=== PATIENT | male | born 1965 | race Caucasian/White ===

== ENCOUNTER 2024-06-04 16:34 | Emergency (ER) | payer OTHER, SELFPAY ==
[2024-06-04] VITALS (72 sets, daily range): BP systolic 157–166; BP diastolic 84–89; PULSE 84–100; RESP 13–26; TEMP 35.8; O2SAT 91–100
--- NOTE | 2024-06-04 17:30 | RT.EKG_ITS ---
APPROVED REPORT Exam: Resting ECG Reason for Exam: Chest pain Patient Location: E HR:92 bpm ECG Measurements Heart Rate 92 AXIS MN [id number] P [id number] QRSd 95 QRS 59 QT 350 T 57 QTc 432 Conclusion Accelerated junctional rhythm...absent P waves, accele'd V-rate motion artifact, sinus, no stemi
--- NOTE | 2024-06-04 17:30 | DI.RAD_ITS ---
Exam(s) XR CHEST 2V PA LATERAL EXAM: XR CHEST 2V PA LATERAL CLINICAL HISTORY: Chest pain TECHNIQUE: 2D digital imaging was performed of the chest. Two images were obtained. PA and lateral views were obtained. COMPARISON: No exams were available for comparison FINDINGS: MEDIASTINUM: Normal. HEART: Normal. PULMONARY VASCULATURE: Normal. LUNGS: There is a 1.7 cm spiculated nodule which appears to lie in the lingula on the lateral view. The lungs are hyperinflated suggesting underlying COPD. There are bibasilar infiltrates present, lef t greater than right. PLEURAL SPACE: No pleural effusion or pneumothorax. BONE:Within normal limits for the patient's age. OTHER FINDINGS:Normal. IMPRESSION: 1. 1.7 cm spiculated nodule which appears to lie in the lingula. Finding is concerning for neoplasm. CT scan of the chest is recommended for further evaluation. 2. Bilateral basilar infiltrates. This may represent atelectasis, scarring or pneumonia. Please cor relate clinically. Unexpected findings DATA REPOSITORY: RADIATION DOSE DELIVERED:
[2024-06-04 18:40] LABS: Abs Immature Grans 0.06 10^3/uL (0.0-0.06); Absolute Basophil Count 0.04 10^3/uL (0.0-0.2); Absolute Eosinophil Count 0.02 10^3/uL (0.0-0.7); Absolute Lymphocyte Count 1.52 10^3/uL (1.2-3.4); Absolute Monocyte Count 0.69 10^3/uL (0.1-0.8); Absolute Neutrophil Count 6.72 10^3/uL (1.2-6.7); Basophils % 0.4 %; Eosinophils % 0.2 %; HCT 47.4 % (40.0-50.0); HGB 15.8 g/dL (13.5-17.5); Immature Grans % 0.7 %; Lymphocytes % 16.8 %; MCH 30.1 pg (27.0-33.0); MCHC 33.3 % (32.0-36.0); MCV 90 fL (80-95); MPV 8.8 fL (8.0-11.0); Monocytes % 7.6 %; Neutrophils % 74.3 %; Platelet Count 267 10^3/uL (130-400); RBC 5.25 10^6/uL (4.36-5.78); RDW 14.8 % (11.8-14.1); RDW-SD 48.8 fL; WBC 9.05 10^3/uL (4.4-10.8)
[2024-06-04] MEDS: Albuterol 2.5 MG/3 ML INH SOLN VIAL UPD (18:41)
[2024-06-04] MEDS: Albuterol HFA 8 GM 60 PUFF INH IH (18:42)
[2024-06-04 19:03] LABS: ALT 21 U/L (16-63); AST 17 U/L (15-37); Alkaline Phosphatase 116 U/L (46-116); BUN 11 mg/dL (7-18); Bilirubin, Total 0.6 mg/dL (0.2-1.0); CREATININE 0.8 mg/dL (0.70-1.30); Calcium 9.2 mg/dL (8.5-10.1); Chloride 104 mmol/L (98-107); Estimated GFR 102.58 (mL/min/1.73m2); Glucose 116 mg/dL (74-106); NT-proBNP 120 pg/mL (<300); Potassium 4.2 mmol/L (3.5-5.1); Sodium 141 mmol/L (136-145); Total Protein 8.1 g/dL (6.4-8.2)
[2024-06-04 19:06] LABS: D-Dimer 322 ng/mlFEU (<500)
[2024-06-04 19:13] LABS: Troponin I < 4 ng/L (<or=76)
[2024-06-04] MEDS: Albuterol/Ipratropium 3 ML UPD VIAL UPD ×2 (19:45→20:09)
--- NOTE | 2024-06-04 20:08 | DI.VRAD_ITS ---
PROCEDURE INFORMATION: Exam: XR Chest Exam date and time: 06/04/2024 7:20 PM Age: 59 years old Clinical indication: Other: Chest pain TECHNIQUE: Imaging protocol: Radiologic exam of the chest. Views: 2 views. COMPARISON: No relevant prior studies available. FINDINGS: Lungs: 2 cm spiculated nodular opacity is present in the left mid lung, likely within lingula. No other nodular opacities evident. Hazy opacity in the bilateral lower lungs concerning for consolidation and/or atelectasis. Mid to upper lungs are clear. Lung volumes are overall. Pleural spaces: Unremarkable. No pleural effusion. No pneumothorax. Heart/Mediastinum: Unremarkable. No cardiomegaly. Bones/joints: Unremarkable. IMPRESSION: Findings concerning for 2 cm lingular pulmonary nodule as well as bibasilar infiltrate versus atelectasis. Recommend correlation with CT chest. Dictated and Authenticated by: Jeevan Santana MD. Orderin Khurram Kovacs MD
--- NOTE | 2024-06-04 20:24 | W.ED.GENAD ---
Discharge Plan Disposition Patient Disposition: Home Discharge Details Clinical Impression: Pneumonia, COPD exacerbation, Pulmonary nodule Primary Care Provider: Yoan Marion ED Provider: Bethanie Paulson Home Meds and New Rx's Prescriptions: New prednisone 20 mg tablet 40 mg PO ONCE Qty: 10 0RF amoxicillin-pot clavulanate 875-125 mg tablet 1 tab PO BID Qty: 10 0RF azithromycin 250 mg tablet 250 mg PO DAILY 4 Days Qty: 4 0RF Rx Instructions: start on day 2 of therapy Continued albuterol sulfate 90 mcg/actuation aerosol powdr breath activated 2 inh inhalation Q6H budesonide-formoterol [Symbicort] 160-4.5 mcg/actuation HFA aerosol inhaler 2 inh inhalation BID Discharge Instructions Instructions: Pneumonia, Adult (DC), Pulmonary nodule, COPD Exacerbation, Adult ED Additional Instructions: Please have CT scan when he follow-up with primary care physician in the outpatient setting you have 2 pulmonary nodules you also have pneumonia, take the antibiotics as prescribed with prednisone, use the inhaler 2 puffs every 4 hours and rest for the next several days until you are feeling improvement she develop fever chills or any new or worsening complaints please be reassessed take both antibiotics for the next 4 days Discharge Data Discharge Date/Time-TO BE ENTERED AT DEPARTURE: 06/04/24 20:40 HPI General Date/Time Provider Initiated Documentation: 06/04/24 16:38. HPI Narrative: The patient is a 59-year-old incarcerated male with increased work of breathing and cough for several weeks. He lacks his inhalers, typically procured from non-medical sources. He does not have a primary care physician and denies chest pain, recent flights, surgeries, or long drives. Related Data Home Medications ?Medication ?Instructions ?Recorded ?Confirmed albuterol sulfate 90 mcg/actuation 2 inh inhalation Q6H 06/04/24 06/04/24 breath activated powder inhaler amoxicillin 875 mg-potassium 1 tab PO BID #10 tabs 06/04/24 clavulanate 125 mg tablet azithromycin 250 mg tablet 250 mg PO DAILY 4 days #4 tabs 06/04/24 budesonide-formoterol HFA 160 2 inh inhalation BID 06/04/24 06/04/24 mcg-4.5 mcg/actuation aerosol inhaler (Symbicort) prednisone 20 mg tablet 40 mg (2 x 20 mg) PO ONCE #10 tabs 06/04/24 Previous Rx's ?Medication ?Instructions ?Recorded amoxicillin 875 mg-potassium 1 tab PO BID #10 tabs 06/04/24 clavulanate 125 mg tablet azithromycin 250 mg tablet 250 mg PO DAILY 4 days #4 tabs 06/04/24 prednisone 20 mg tablet 40 mg (2 x 20 mg) PO ONCE #10 tabs 06/04/24 Allergies Allergy/AdvReac Type Severity Reaction Status Date / Time codeine Allergy Intermediate Nausea Verified 06/04/24 16:44 General Stated Complaint: SOB CARLOS: 3 Exam Narrative Exam Narrative: General Appearance: Alert and oriented. Vital signs: Oxygen saturation 95% on room air. HEENT: Within normal limits. Respiratory: Mildly diminished breath sounds and rhonchi in lungs. Skin: Warm and dry, no rash. Neurological: Normal. Course Vital Signs Vital signs: Vital Signs Temperature 35.8 C L 06/04/24 16:37 Pulse 95 H 06/04/24 16:37 Respiratory Rate 24 06/04/24 16:37 Blood Pressure 166/89 H 06/04/24 16:37 Pulse Oximetry 95 06/04/24 16:37 Temperature 35.8 C L 06/04/24 16:42 Pulse 95 H 06/04/24 16:42 Pulse 84 06/04/24 18:30 Respiratory Rate 22 06/04/24 18:30 Respiratory Effort Normal, Non-Labored 06/04/24 17:18 Respiratory Depth Normal 06/04/24 17:18 Respiratory Pattern Normal 06/04/24 17:18 Blood Pressure 166/89 H 06/04/24 16:42 Blood Pressure Position Sitting 06/04/24 16:42 Pulse Oximetry 96 06/04/24 18:30 Oxygen Delivery Method Room Air 06/04/24 16:42 Oxygen Flow Rate 0 06/04/24 16:42 Lab/Test Results Lab/Test Results: Laboratory Tests Range/Units 06/04/24 18:30 WBC (4.4-10.8) 10^3/uL 9.05 RBC (4.36-5.78) 10^6/uL 5.25 Hgb (13.5-17.5) g/dL 15.8 Hct (40.0-50.0) % 47.4 MCV (80-95) fL 90 MCH (27.0-33.0) pg 30.1 MCHC (32.0-36.0) % 33.3 RDW (11.8-14.1) % 14.8 H Plt Count (130-400) 10^3/uL 267 MPV (8.0-11.0) fL 8.8 Immature Gran % % 0.7 Neutrophils % % 74.3 Lymphocytes % % 16.8 Monocytes % % 7.6 Eosinophils % % 0.2 Basophils % % 0.4 Nucleated RBC % (0.0-0.3) % 0.0 Absolute Neutrophils (1.2-6.7) 10^3/uL 6.72 H Absolute Lymphocytes (1.2-3.4) 10^3/uL 1.52 Absolute Monocytes (0.1-0.8) 10^3/uL 0.69 Absolute Eosinophils (0.0-0.7) 10^3/uL 0.02 Absolute Basophils (0.0-0.2) 10^3/uL 0.04 D-Dimer (<500) ng/mlFEU 322 Sodium (136-145) mmol/L 141 Potassium (3.5-5.1) mmol/L 4.2 Chloride (98-107) mmol/L 104 Carbon Dioxide (21.0-32.0) mmol/L 26.0 Anion Gap (3-11) mmol/L 11.0 BUN (7-18) mg/dL 11 Creatinine (0.70-1.30) mg/dL 0.8 Est GFR (CKD-EPI 2020) (mL/min/1.73m2) 102.58 Glucose (74-106) mg/dL 116 H Calcium (8.5-10.1) mg/dL 9.2 Total Bilirubin (0.2-1.0) mg/dL 0.6 AST (15-37) U/L 17 ALT (16-63) U/L 21 Alkaline Phosphatase (46-116) U/L 116 Troponin I (<or=76) ng/L < 4 NT-Pro-B Natriuret Pep (<300) pg/mL 120 Total Protein (6.4-8.2) g/dL 8.1 Albumin (3.4-5.0) g/dL 4.0 Medical Decision Making Troponin negative. Chest x-ray shows infiltrates and two nodules. EKG nonischemic. Initial Assessment: 59-year-old male, incarcerated, presents with increased work of breathing and cough for several weeks. No chest pain, recent flights, surgeries, or long drives. ED Course: - Patient alert and oriented, mildly diminished, rhonchi noted. - EKG nonischemic. - Chest x-ray shows infiltrates and two nodules, recommendation for outpatient CT scan per radiology interpretation of my review. - Diagnostic blood work negative for acute abnormalities, including negative troponin level. - Given three nebulizer treatments, reported improvement. - Oxygen saturation 95% on room air. - Treated with prednisone, Augmentin, and azithromycin. - Discharged to custodial with inhaler and spacer. - Encouraged to have CT scan outpatient to evaluate pulmonary nodules. - Return precautions reviewed and understood. Final Assessment: Patient presented with increased work of breathing and cough. Treatment included nebulizer treatments, antibiotics, and steroids. Diagnostic tests showed no acute abnormalities. Discharged with follow-up instructions. Clinical Impression: - Pneumonia Disposition: - Discharge: Discharged to custodial. - Follow-Up: Recheck in 2 to 3 days encouraged. MDM Components Evaluation: - Number of Differential Diagnoses or Management Options: Pneumonia - Amount and Complexity of Data Reviewed: EKG, chest x-ray, diagnostic blood work - Risk of Complication and Morbidity or Mortality: Moderate risk due to pneumonia and pulmonary nodules. Quality:SDOH Health Related Social Needs: No Data to Display FORMERLY [facility], [facility] All Active Problems (Updated 06/04/24 @ 20:18 by NANCY Rojas) Pulmonary nodule (Acute) COPD exacerbation (Acute) Pneumonia (Acute) Social History Smoking risk assessment performed?: No
[2024-06-04] MEDS: predniSONE 20 MG TAB 40 MG PO (20:25)
[2024-06-04] MEDS: Azithromycin 250 MG TAB 500 MG PO (20:25)
[2024-06-04] MEDS: Amox. 875/Clav. 125, 2 TABS/BTL 1 TAB PO (20:25)
== END 2024-06-04 20:40 | disposition home or self-care (01) ==
PROVIDERS: Emergency Provider Physician Assistant; PCP Internal Medicine
DX: J18.9 Pneumonia, unspecified organism (principal); J44.1 Chronic obstructive pulmonary disease with (acute) exacerbation; R91.1 Solitary pulmonary nodule
CPT/HCPCS: 36415; 80053; 93005; 94640; 99285; 71046; 83880; 84484; 85025; 85379; 93010; 99284; J7512; J7613; J7620

== ENCOUNTER 2024-06-29 10:13 | Observation (INO) | payer OTHER, MEDICAID, SELFPAY ==
[2024-06-29] VITALS (14 sets, daily range): BP systolic 100–146; BP diastolic 58–121; PULSE 67–147; RESP 8–26; TEMP 35.9–36.6; O2SAT 91–95
--- NOTE | 2024-06-29 10:15 | RT.EKG_ITS ---
APPROVED REPORT Exam: Resting ECG Reason for Exam: SOB Patient Location: E HR:66 bpm ECG Measurements Heart Rate 66 AXIS FL 159 P 72 QRSd 96 QRS 53 QT 372 T 59 QTc 390 Conclusion Sinus rhythm...normal P axis, V-rate 60- 99 No Occlusion TX
--- NOTE | 2024-06-29 10:15 | DI.RAD_ITS ---
Exam(s) XR PORTABLE CHEST AP EXAM: XR PORTABLE CHEST AP CLINICAL HISTORY: SOB, TECHNIQUE: 2D digital imaging was performed. COMPARISON: CR,XR XR CHEST 2V PA LATERAL from 06/04/[address] CHEST W from 06/26/2024 FINDINGS: Overlying monitoring leads. LUNGS: Emphysematous and fibrotic changes are again noted. There is a nodule seen in the left lower lung field which appears to have increased from the previous exam versus differences in technique.. No pleural abnormality seen. HEART: Normal size. AORTA: Normal diameter. BONES: Unremarkable for age. Soft tissues: Unremarkable. IMPRESSION: Increase in size of previously noted left sided pulmonary nodule versus differences in technique. DATA REPOSITORY: RADIATION DOSE DELIVERED:
--- NOTE | 2024-06-29 10:21 | W.ED.GENAD ---
Discharge Plan Disposition Patient Disposition: Admit to [facility] Condition: Stable Discharge Details Clinical Impression: COPD exacerbation, Hypoxia, Leg swelling Primary Care Provider: Unknown,Unknown ED Provider: Colette Nieves Home Meds and New Rx's Prescriptions: No Action albuterol sulfate 90 mcg/actuation aerosol powdr breath activated 2 inh inhalation Q6H budesonide-formoterol [Symbicort] 160-4.5 mcg/actuation HFA aerosol inhaler 2 inh inhalation BID prednisone 20 mg tablet 40 mg PO ONCE Qty: 10 0RF amoxicillin-pot clavulanate 875-125 mg tablet 1 tab PO BID Qty: 10 0RF furosemide 40 mg tablet 40 mg PO DAILY ipratropium-albuterol 0.5 mg-3 mg(2.5 mg base)/3 mL solution for nebulization 3 ml inhalation QID PRN ciprofloxacin HCl 250 mg tablet 250 mg PO BID Arnuity Ellipta 100 mcg/actuation blister with device 1 inh inhalation DAILY [id number] 27mg iron- 0.8 mg tablet 1 tab PO DAILY thiamine HCl (vitamin B1) [Vitamin B-1] 100 mg tablet 100 mg PO DAILY buprenorphine-naloxone [Suboxone] 8-2 mg film 1 film sublingual DAILY buprenorphine-naloxone [Suboxone] 2-0.5 mg film 2 film sublingual QAM Rx Instructions: place 1 strip/tab under (each) side of tongue HPI General Mode of arrival: EMS. Date/Time Provider Initiated Documentation: 06/29/24 10:18. Limitations to Documentation: no limitations. Information obtained by: patient, EMS, RN notes reviewed and old records reviewed. HPI Narrative: 59-year-old male presents to the ER company [employer] he incarcerated, presents with increased shortness of breath and bilateral leg swelling with weeping over the last 4 days. He was seen here recently in May for pneumonia, recently had a CT on June 26 which he states was diagnosed with lung cancer. He does have a mass adjacent to the lingula. He denies any chest pain. He is on room air currently. Speaking in broken sentences, 3-4+ pitting edema noted in bilateral extremities. He is placed on 3 L nasal cannula on arrival to the ER, EMS reports that his BGL read low they did give insulin to start prior to arrival, he also got a DuoNeb prior to arrival. Room air sat on scene was in the low 80s per EMS. Related Data Home Medications ?Medication ?Instructions ?Recorded ?Confirmed albuterol sulfate 90 mcg/actuation 2 inh inhalation Q6H 06/04/24 06/29/24 breath activated powder inhaler amoxicillin 875 mg-potassium 1 tab PO BID #10 tabs 06/04/24 06/29/24 clavulanate 125 mg tablet budesonide-formoterol HFA 160 2 inh inhalation BID 06/04/24 06/29/24 mcg-4.5 mcg/actuation aerosol inhaler (Symbicort) prednisone 20 mg tablet 40 mg (2 x 20 mg) PO ONCE #10 tabs 06/04/24 06/29/24 buprenorphine 2 mg-naloxone 0.5 mg 2 film sublingual QAM 06/29/24 06/29/24 sublingual film (Suboxone) buprenorphine 8 mg-naloxone 2 mg 1 film sublingual DAILY 06/29/24 06/29/24 sublingual film (Suboxone) ciprofloxacin HCl 250 mg tablet 250 mg PO BID 06/29/24 06/29/24 fluticasone furoate 100 1 inh inhalation DAILY 06/29/24 06/29/24 mcg/actuation blister powder for inhalation (Arnuity Ellipta) furosemide 40 mg tablet 40 mg PO DAILY 06/29/24 06/29/24 ipratropium 0.5 mg-albuterol 3 mg 3 ml inhalation QID PRN 06/29/24 06/29/24 (2.5 mg base)/3 mL nebulization soln vit 137-ferrous fumarate 1 tab PO DAILY 06/29/24 06/29/24 27 mg iron-folic acid 0.8 mg tablet thiamine HCl (vitamin B1) 100 mg 100 mg PO DAILY 06/29/24 06/29/24 tablet (Vitamin B-1) Previous Rx's ?Medication ?Instructions ?Recorded amoxicillin 875 mg-potassium 1 tab PO BID #10 tabs 06/04/24 clavulanate 125 mg tablet prednisone 20 mg tablet 40 mg (2 x 20 mg) PO ONCE #10 tabs 06/04/24 Allergies Allergy/AdvReac Type Severity Reaction Status Date / Time cocoa Allergy Severe Anaphylaxis Verified 06/29/24 10:26 codeine Allergy Intermediate Nausea Verified 06/29/24 10:26 Sulfa (Sulfonamide AdvReac Intermediate Nausea Verified 06/29/24 10:26 Antibiotics) General Stated Complaint: SOB CARLOS: 3 Review of Systems All systems reviewed & are unremarkable except as noted in HPI and below Constitutional Constitutional: Reports as per HPI Cardiovascular Cardiovascular: Reports pedal edema, Reports leg edema, Reports dyspnea and Reports dyspnea on exertion Respiratory Respiratory: Reports dyspnea and Reports dyspnea on exertion Exam Narrative Exam Narrative: Constitutional: Alert and oriented x3. Appears stated age. Obese body habitus. Head: Normocephalic, no trauma. Eyes: Pupils PERRL, Red reflex noted, EOM's intact. Eyelids symmetrical without lesions, discharge, or swelling. ENT: Bilateral TM's WNL, External ear normal to inspection, no mastoid TTP, swelling, or erythema, Nasal turbinates WNL, no nasal discharge. Normal dentition, Posterior pharynx WNL, no exudate. Chest: RRR, Normal S1, S2, distal pulses intact. Resp: Lungs diminished to auscultation bilaterally, no wheezes, rales, or rhonchi. Abdomen: Soft, non-distended, Normoactive bowel sounds all 4 quads. Musculoskeletal: Unable to assess gait, moves all 4 extremities without difficulty. Skin: Bilateral lower extremity swelling, 3-4+ edema which is weeping sanguinous clear fluid, erythemic, appears to be chronic peripheral vascular disorder, he reports it is decreased in redness, capillary refill less than 2 sec. Neurologic: Cranial nerves II-XII intact. Alert and oriented x 3. Motor: No deficits noted. Sensory: Intact bilaterally all 4 extremities. Hematologic/Lymphatic: Erythema bilateral lower extremities, Course Vital Signs Vital signs: Vital Signs Temperature 36.6 C 06/29/24 10:16 Pulse 88 06/29/24 10:16 Respiratory Rate 26 H 06/29/24 10:16 Blood Pressure 146/67 H 06/29/24 10:16 Pulse Oximetry 95 06/29/24 10:16 Temperature 36.6 C 06/29/24 10:16 Temperature Source Temporal Artery Scan 06/29/24 10:16 Pulse 88 06/29/24 10:16 Respiratory Rate 26 H 06/29/24 10:16 Blood Pressure 146/67 H 06/29/24 10:16 Blood Pressure Position Sitting 06/29/24 10:16 Pulse Oximetry 95 06/29/24 10:16 Oxygen Delivery Method Nasal Cannula 06/29/24 10:16 Pain Level 0 06/29/24 10:16 Medical Decision Making 59-year-old male presents to the ER via EMS, patient is incarcerated, presents with increased shortness of breath and bilateral leg swelling with weeping over the last 4 days. He was seen here recently in May for pneumonia, recently had a CT on June 26 which he states was diagnosed with lung cancer. He does have a mass adjacent to the lingula. He denies any chest pain. He is on room air currently. Speaking in broken sentences, 3-4+ pitting edema noted in bilateral extremities. He is placed on 3 L nasal cannula on arrival to the ER, EMS reports that his BGL read low they did give syrup prior to arrival, he also got a DuoNeb prior to arrival. Room air sat on scene was in the low 80s per EMS. Cardiac workup ordered including EKG, CBC CMP, VBG serial troponins proBNP POCUS exam PT PTT fluid swab and chest x-ray. 125 Solu-Medrol, DuoNeb ordered. Ultrasound bilateral lower extremities ordered to rule out DVT. Third troponin canceled. No evidence of PE. Will contact the hospitalist regarding patient case in details once again. Spoke with Dr. Perez regarding patient case in details he agrees to accept patient for admission for new onset hypoxia and need for oxygen. We did do a room air trial here patient was satting in the 80s after the Solu-Medrol and nebulizer. Discussed plan of care with patient and correctional officers they verbalized understanding and are in agreement with plan. Patient has no complaints of chest pain at this time. He reports feeling fatigued. This text was generated using [employer] system, please disregard any oddities of phrase or misspellings. Medical Records Medical records reviewed: Yes I reviewed the patient's medical records. Imaging Data Radiologic Study: Imaging: X-Ray Radiologist's impression: PROCEDURE INFORMATION: Exam: XR Chest Exam date and time: 06/29/2024 10:40 AM Age: 59 years old Clinical indication: Other: Cough TECHNIQUE: Imaging protocol: Radiologic exam of the chest. Views: 1 view. COMPARISON: CT CHEST W 06/26/2024 8:51 AM FINDINGS: Lungs: There are emphysematous changes throughout. There is a 1.9 cm nodule in the left upper lobe. No acute infiltrate identified. Pleural spaces: No effusions. Heart/Mediastinum: The heart is mildly enlarged. The superior mediastinum is unremarkable. Bones/joints: No acute bony change of the ribs. IMPRESSION: 1. Redemonstration of a 1.9 cm nodular mass in the left upper lobe. 2. Emphysematous changes of the lungs without acute infiltrate, effusion or pneumothorax. Thank you for allowing us to participate in the care of your patient. Dictated and Authenticated by: Tab Hussein MD 06/29/2024 12:09 PM Eastern Time ([place] & [place]) Radiologic Study #2: Imaging: CT Scan Radiologist's impression: COMPARISON: CT CHEST W 06/26/2024 8:51 AM FINDINGS: Pulmonary arteries: No filling defects within the pulmonary arteries identified. There are no pulmonary emboli. The main pulmonary artery measures 4.0 cm. This is dilated. This may reflect pulmonary arterial hypertension. Aorta: The ascending thoracic aorta measures 4.2 cm. This is dilated. No dissection. The descending thoracic aorta measures 2.8 cm. Lungs: There is redemonstration of severe centrilobular and paraseptal emphysema. There is a large bulla along the anterior chest that measures at least 10.5 x 6.0 cm. This is unchanged. There is redemonstration of a noncalcified nodule in the lingula that measures 1.5 x 1.5 cm. There is redemonstration of a 4.5 mm nodule in the lingula also unchanged. (series 20, image 189) There is mild atelectasis in the posterior segments of both lower lobes. No consolidation Pleural spaces: No effusions or pneumothoraces. Heart: The heart is mildly enlarged. Lymph nodes: No abnormal mediastinal adenopathy. The largest precarinal node measures 8 x 10 mm. The largest aortic pulmonic node measures 6 x 10 mm. The largest subcarinal node measures 7 x 16 mm. Bones/joints: There are mild degenerative changes of the thoracic spine without acute bony change. There are 2 old fractures of the lateral right 9th rib Soft tissues: No abnormal soft tissue lesions of the anterior chest wall. IMPRESSION: 1. No pulmonary emboli. 2. Enlarged main pulmonary artery which may reflect pulmonary arterial hypertension. 3. Enlarged ascending thoracic aorta measuring 4.2 cm without dissection. 4. Severe centrilobular and paraseptal emphysema with large stable bulla in the anterior chest. No pneumothorax or effusion 5. Stable nodules in the left upper lobe. 6. Mild atelectasis in the posterior segments of both lower lobes and lingula. Thank you for allowing us to participate in the care of your patient. Dictated and Authenticated by: Tab Hussein MD Lab Data Lab results reviewed: Yes I reviewed the patient's lab results. Labs: Laboratory Tests Range/Units 06/29/24 06/29/24 10:24 11:19 WBC (4.4-10.8) 10^3/uL 9.77 RBC (4.36-5.78) 10^6/uL 4.27 L Hgb (13.5-17.5) g/dL 12.9 L Hct (40.0-50.0) % 38.8 L MCV (80-95) fL 91 MCH (27.0-33.0) pg 30.2 MCHC (32.0-36.0) % 33.2 RDW (11.8-14.1) % 12.9 Plt Count (130-400) 10^3/uL 335 MPV (8.0-11.0) fL 8.6 Immature Gran % % 0.6 Neutrophils % % 82.5 Lymphocytes % % 9.3 Monocytes % % 6.7 Eosinophils % % 0.7 Basophils % % 0.2 Nucleated RBC % (0.0-0.3) % 0.0 Absolute Neutrophils (1.2-6.7) 10^3/uL 8.06 H Absolute Lymphocytes (1.2-3.4) 10^3/uL 0.91 L Absolute Monocytes (0.1-0.8) 10^3/uL 0.65 Absolute Eosinophils (0.0-0.7) 10^3/uL 0.07 Absolute Basophils (0.0-0.2) 10^3/uL 0.02 PT (9.1-11.1) sec 10.7 INR (0.9-1.1) 1.1 APTT (20.6-30.2) sec 25.9 D-Dimer (<500) ng/mlFEU 945 H VBG pH (7.31-7.41) 7.41 VBG pCO2 (41-51) mmHg 46 VBG pO2 mmHg 74 VBG HCO3 (23-28) mmol/L 29 H VBG Total CO2 (24-29) mmol/L 26 VBG O2 Saturation % 96 VBG Base Excess (-2-3) mmol/L 5 H Sodium (136-145) mmol/L 139 Potassium (3.5-5.1) mmol/L 3.6 Chloride (98-107) mmol/L 100 Carbon Dioxide (21.0-32.0) mmol/L 30.2 Anion Gap (3-11) mmol/L 8.8 BUN (7-18) mg/dL 12 Creatinine (0.70-1.30) mg/dL 0.9 Est GFR (CKD-EPI 2020) (mL/min/1.73m2) 99.00 Glucose (74-106) mg/dL 152 H Calcium (8.5-10.1) mg/dL 9.3 Magnesium (1.8-2.4) mg/dL 1.8 Total Bilirubin (0.2-1.0) mg/dL 0.4 AST (15-37) U/L 30 ALT (16-63) U/L 32 Alkaline Phosphatase (46-116) U/L 80 Troponin I (<or=76) ng/L < 4 5 NT-Pro-B Natriuret Pep (<300) pg/mL 461 H Total Protein (6.4-8.2) g/dL 7.2 Albumin (3.4-5.0) g/dL 3.3 L COVID-19 Source Nasopharynx SARS-CoV-2 (PCR) (Negative) Negative Influenza Type A (PCR) (Negative) Negative Influenza Type B (PCR) (Negative) Negative RSV (PCR) (Negative) Negative Quality:SDOH Health Related Social Needs: No Data to Display PFSH All Active Problems (Updated 06/29/24 @ 14:40 by Colette Nieves NP) Leg swelling (Acute) Hypoxia (Acute) Pulmonary nodule (Acute) COPD exacerbation (Acute) Pneumonia (Acute) Social History Smoking/Tobacco Use Status: Former Tobacco Use Tobacco: How many years used: 45 Smoking risk assessment performed?: Yes Alcohol Intake: former Drug use: Current Sobriety Substance use type: former substance user, marijuana, crack/cocaine, heroin, amphetamines, sedatives, opiates, painkillers, methamphetamine and prescription drug Details: has been in corrections for 30 days Housing: other Do you feel safe at home: Yes Do you feel safe in your relationship?: No
[2024-06-29 10:34] LABS: BE (Venous) 5 mmol/L (-2-3); HCO3 (Venous) 29 mmol/L (23-28); O2 Sat (Venous) 96 %; TCO2 (Venous) 26 mmol/L (24-29); pCO2 (Venous) 46 mmHg (41-51); pH (Venous) 7.41 (7.31-7.41); pO2 (Venous) 74 mmHg
[2024-06-29 10:36] LABS: Abs Immature Grans 0.06 10^3/uL (0.0-0.06); Absolute Basophil Count 0.02 10^3/uL (0.0-0.2); Absolute Eosinophil Count 0.07 10^3/uL (0.0-0.7); Absolute Lymphocyte Count 0.91 10^3/uL (1.2-3.4); Absolute Monocyte Count 0.65 10^3/uL (0.1-0.8); Absolute Neutrophil Count 8.06 10^3/uL (1.2-6.7); Basophils % 0.2 %; Eosinophils % 0.7 %; HCT 38.8 % (40.0-50.0); HGB 12.9 g/dL (13.5-17.5); Immature Grans % 0.6 %; Lymphocytes % 9.3 %; MCH 30.2 pg (27.0-33.0); MCHC 33.2 % (32.0-36.0); MCV 91 fL (80-95); MPV 8.6 fL (8.0-11.0); Monocytes % 6.7 %; Neutrophils % 82.5 %; Platelet Count 335 10^3/uL (130-400); RBC 4.27 10^6/uL (4.36-5.78); RDW 12.9 % (11.8-14.1); RDW-SD 43.2 fL; WBC 9.77 10^3/uL (4.4-10.8)
--- NOTE | 2024-06-29 10:40 | W.EDPROG ---
Date of service: 06/29/24 Time of Service: 10:40 Medical Decision Making I participated in this patient's care by completing a bedside echocardiogram where patient appeared to have a preserved ejection fraction. Please see his advanced practice provider's note for complete details. Quality:SDOH Health Related Social Needs: No Data to Display Discharge Plan Disposition Patient Disposition: Admit to [facility] Condition: Stable Discharge Details Clinical Impression: COPD exacerbation, Hypoxia, Leg swelling Admit Date/Time: 06/29/24 14:50 Admit Provider: Monty Perez Attending Provider: Monty Perez Primary Care Provider: Unknown,Unknown ED Provider: Colette Nieves Discharge Data Discharge Date/Time-TO BE ENTERED AT DEPARTURE: 06/29/24 15:42 POCUS Exam (ED) Limited Cardiac Exam DATE OF EXAM: 06/29/24 TIME OF EXAM: 12:00 PROVIDER THAT PERFORMED THE STUDY: Renard Charles IS THIS A REPEAT EXAM DURING THIS ENCOUNTER: no REASON FOR EXAM: Dyspnea VISUALIZED STRUCTURES: Four Chambers, Left ventricle, LVOT and Other structure: Lungs VIEW OBTAINED: Apical 4-Chamber, Parasternal long-axis and Subxiphoid PERTINENT FINDINGS/IMPRESSION: No pericardial effusion and No RV dilation DIFFERENTIAL DIAGNOSES: Aortic outflow track less than 4 cm, good squeeze, RV less than LV, no significant pericardial effusion. No significant B-lines anteriorly. Trace bilateral dependent basilar B-lines Exam complete
[2024-06-29 10:49] LABS: INR 1.1 (0.9-1.1); PTT Activated 25.9 sec (20.6-30.2); Prothrombin Time 10.7 sec (9.1-11.1)
[2024-06-29 10:59] LABS: ALT 32 U/L (16-63); AST 30 U/L (15-37); Albumin 3.3 g/dL (3.4-5.0); Alkaline Phosphatase 80 U/L (46-116); Anion Gap 8.8 mmol/L (3-11); BUN 12 mg/dL (7-18); Bilirubin, Total 0.4 mg/dL (0.2-1.0); CO2 30.2 mmol/L (21.0-32.0); CREATININE 0.9 mg/dL (0.70-1.30); Calcium 9.3 mg/dL (8.5-10.1); Chloride 100 mmol/L (98-107); Glucose 152 mg/dL (74-106); Magnesium 1.8 mg/dL (1.8-2.4); NT-proBNP 461 pg/mL (<300); Potassium 3.6 mmol/L (3.5-5.1); Sodium 139 mmol/L (136-145); Total Protein 7.2 g/dL (6.4-8.2)
[2024-06-29 11:06] LABS: Troponin I < 4 ng/L (<or=76)
[2024-06-29 11:15] LABS: COVID-19 PCR Negative (Negative); Influenza A PCR Negative (Negative); Influenza B PCR Negative (Negative); RSV PCR Negative (Negative)
[2024-06-29 11:16] LABS: Source Nasopharynx
[2024-06-29 11:43] LABS: Troponin I 5 ng/L (<or=76)
--- NOTE | 2024-06-29 12:00 | DI.US_ITS ---
Exam(s) US EXTREMITY VENOUS BI EXAM: US EXTREMITY VENOUS BI CLINICAL HISTORY: Swelling, R/O DVT. TECHNIQUE: Bilateral lower extremity venous ultrasound performed using grayscale, color-flow, and sp ectral Doppler analysis. COMPARISON: No exams were available for comparison FINDINGS: The bilateral common femoral, femoral and popliteal veins demonstrate normal compressibility, augment ation, and color Doppler. The posterior tibial and parent veins are patent. Subcutaneous edema. No drainable collection. IMPRESSION: Right: Negative for DVT Left: Negative for DVT DATA REPOSITORY:
--- NOTE | 2024-06-29 12:10 | DI.VRAD_ITS ---
PROCEDURE INFORMATION: Exam: XR Chest Exam date and time: 06/29/2024 10:40 AM Age: 59 years old Clinical indication: Other: Cough TECHNIQUE: Imaging protocol: Radiologic exam of the chest. Views: 1 view. COMPARISON: CT CHEST W 06/26/2024 8:51 AM FINDINGS: Lungs: There are emphysematous changes throughout. There is a 1.9 cm nodule in the left upper lobe. No acute infiltrate identified. Pleural spaces: No effusions. Heart/Mediastinum: The heart is mildly enlarged. The superior mediastinum is unremarkable. Bones/joints: No acute bony change of the ribs. IMPRESSION: 1. Redemonstration of a 1.9 cm nodular mass in the left upper lobe. 2. Emphysematous changes of the lungs without acute infiltrate, effusion or pneumothorax. Dictated and Authenticated by: Tab Hussein MD. Orderin Lizbeth Alvarenga MD
[2024-06-29 12:22] LABS: D-Dimer 945 ng/mlFEU (<500)
[2024-06-29] MEDS: Albuterol/Ipratropium 3 ML UPD VIAL UPD (12:24)
[2024-06-29] MEDS: methylPREDNISolone SUCC 125 MG VIAL IVP (12:24)
--- NOTE | 2024-06-29 12:45 | DI.CT_ITS ---
Exam(s) CT CHEST PE CTA EXAM: CT CHEST PE CTA CLINICAL HISTORY: SOB, Hypoxia. TECHNIQUE: Imaging Protocol: Axial CT angiography was performed with multi-slice acquisition and mu lti-planar reconstructions as well as axial, coronal and sagittal MIP reconstructions. Computer aided detection (CAD) was utilized. CONTRAST MATERIAL: Intravenous: Omnipaque 350 Contrast volume:100 ml COMPARISON: CT CT CHEST W from 06/26/2024 CR,XR XR PORTABLE CHEST AP from 06/29/2024 FINDINGS: Pulmonary Arteries: No evidence of filling defect to suggest pulmonary emboli. Dilated, consistent with pulmonary artery hypertension. Mediastinum and Mary: No dominant adenopathy or fluid collection. Stable small lymph nodes. Pulmonary parenchyma: Suboptimally evaluated due to expiratory changes. Large right anterior bulla n oted. Otherwise moderate underlying emphysematous changes. Mass again noted in the lingula measurin g maximally 18 millimeters. Stable 4 millimeter nodule in the inferior lingula. No consolidation o r edema. Pleura: No effusion or pneumothorax. Heart: The heart is mildly dilated. Mild coronary artery calcifications are seen. Aorta: Ascending the are measures 4.2 cm, unchanged. No dissection. Upper abdomen: No acute findings. Bones: Old rib fractures. Tubes, Catheters, and Lines: None Soft tissues: Unremarkable. IMPRESSION: No evidence of pulmonary embolism. Stable lingular nodules, 18 and 4 millimeters. Emphysematous changes. No acute abnormality. RADIATION DOSE DELIVERED: , total DLP DATA REPOSITORY: All CT scans at this facility are submitted to the National Radiology Data Registry (NRDR) Dose Index Registry (DIR) with the [employer] (ACR). RADIATION OPTIMIZATION: All CT scans at this facility use at least one of these dose optimization te chniques: automated exposure control; mA and/or kV adjustment per patient size (includes targeted exa ms where dose is matched to clinical indication); or iterative reconstruction.
[2024-06-29] MEDS: Normal Saline - Diluent 50 ML VIAL IJ (13:14)
[2024-06-29] MEDS: Omnipaque 350 MG/ML 100 ML BTL IJ (13:15)
--- NOTE | 2024-06-29 14:29 | DI.VRAD_ITS ---
PROCEDURE INFORMATION: Exam: CTA Chest With Contrast Exam date and time: 06/29/2024 1:13 PM Age: 59 years old Clinical indication: Other: SOB, hypoxia TECHNIQUE: Imaging protocol: Computed tomographic angiography of the chest with contrast. Exam focused on the arteries. 3D rendering (Not supervised by radiologist): MIP and/or 3D reconstructed images were created by the technologist. Radiation optimization: All CT scans at this facility use at least one of these dose optimization techniques: automated exposure control; mA and/or kV adjustment per patient size (includes targeted exams where dose is matched to clinical indication); or iterative reconstruction. Contrast material: OMNI 350; Contrast volume: 100 ml; Contrast route: INTRAVENOUS (IV); COMPARISON: CT CHEST W 06/26/2024 8:51 AM FINDINGS: Pulmonary arteries: No filling defects within the pulmonary arteries identified. There are no pulmonary emboli. The main pulmonary artery measures 4.0 cm. This is dilated. This may reflect pulmonary arterial hypertension. Aorta: The ascending thoracic aorta measures 4.2 cm. This is dilated. No dissection. The descending thoracic aorta measures 2.8 cm. Lungs: There is redemonstration of severe centrilobular and paraseptal emphysema. There is a large bulla along the anterior chest that measures at least 10.5 x 6.0 cm. This is unchanged. There is redemonstration of a noncalcified nodule in the lingula that measures 1.5 x 1.5 cm. There is redemonstration of a 4.5 mm nodule in the lingula also unchanged. (series 20, image 189) There is mild atelectasis in the posterior segments of both lower lobes. No consolidation Pleural spaces: No effusions or pneumothoraces. Heart: The heart is mildly enlarged. Lymph nodes: No abnormal mediastinal adenopathy. The largest precarinal node measures 8 x 10 mm. The largest aortic pulmonic node measures 6 x 10 mm. The largest subcarinal node measures 7 x 16 mm. Bones/joints: There are mild degenerative changes of the thoracic spine without acute bony change. There are 2 old fractures of the lateral right 9th rib Soft tissues: No abnormal soft tissue lesions of the anterior chest wall. IMPRESSION: 1. No pulmonary emboli. 2. Enlarged main pulmonary artery which may reflect pulmonary arterial hypertension. 3. Enlarged ascending thoracic aorta measuring 4.2 cm without dissection. 4. Severe centrilobular and paraseptal emphysema with large stable bulla in the anterior chest. No pneumothorax or effusion 5. Stable nodules in the left upper lobe. 6. Mild atelectasis in the posterior segments of both lower lobes and lingula. Dictated and Authenticated by: Tab Hussein MD. Orderin Lizbeth Alvarenga MD
--- NOTE | 2024-06-29 14:51 | HPE_ITS ---
Date of service: 06/29/24 Time of Service: 14:51 Assessment and Plan Assessment and plan (1) Acute hypoxic respiratory failure: Status: Acute Assessment and plan: No PE or pneumonia on CTangio chest. resp viral panel negative. has been weaned off oxgyen and now satting 94% on room air continue inhalers, pulmonary toileting (2) COPD exacerbation: Status: Acute Assessment and plan: No evidence of and acute exacerbation with no reports of increased cough or sputum production and no wheezing on physical exam Will continue symbicort and fluticasone add duoneb and albuterol prn was given IV methylprednisone in ED, will hold off on further steroids at this time incentive spirometry (3) Pulmonary nodule: Status: Acute Assessment and plan: will need outpatient f/u (4) Cellulitis of right lower extremity: Status: Acute Assessment and plan: Elevate above the level of the heart is much as possible throughout the day. cefazolin 2 gm every 8 hours add inflammatory markers, trend as appropriate. (5) Leg swelling: Status: Acute Assessment and plan: elevate, compression US bilateral legs for DVT negative continue diuretics right greater than left edema Does have discoloration of his bilateral lower extremities with the right also greater than the left, left most consistent with a venous stasis dermatitis right is more concerning for a possible cellulitis please see above has recently been on steroids which may have contributed to the worsening edema (6) Opioid dependence: Status: Acute Assessment and plan: Continue Suboxone home dose Discussed with Dr. Perez History of Present Illness Narrative: This is a 59-year-old male patient with past medical history significant for COPD, drug use disorder, pulmonary nodule, who is incarcerated presenting to the emergency department with reports of shortness of breath found to be hypoxic requiring oxygen via 2 L nasal cannula to maintain sats in the low 90s. He was seen here earlier this month and treated for COPD exacerbation with Augmentin, steroids, respiratory inhalers. His workup in the emergency department showed no evidence of sepsis with no elevated white count tachycardia fever or elevated white blood cell count. He did have an elevated D-dimer so CT angio of the chest was obtained and did rule out a pulmonary embolism. There was no infiltrate or consolidation to suggest pneumonia. His respiratory viral panel was negative for COVID influenza or RSV. He was given DuoNeb updraft with IV steroids in the emergency department. Hospitalist services was contacted for admission for acute hypoxic respiratory failure secondary to COPD exacerbation. Also noted to have bilateral lower extremity edema and weeping and discoloration consistent with venous stasis dermatitis, possible cellulitis right lower extremity. US negative for DVT. After further history taking patient denies any increased cough or sputum production. On exam there is no wheezing or coarse breath sounds noted. He has been weaned off oxygen and is satting 94% on room air. Review of Systems All systems reviewed & are unremarkable except as noted in HPI and below PFSH All Active Problems (Updated 06/29/24 @ 17:00 by Belia Schofield NP) Opioid dependence (Acute) Cellulitis of right lower extremity (Acute) Acute hypoxic respiratory failure (Acute) Leg swelling (Acute) Hypoxia (Acute) Pulmonary nodule (Acute) COPD exacerbation (Acute) Pneumonia (Acute) Social History Smoking/Tobacco Use Status: Former Tobacco Use Tobacco: How many years used: 45 Smoking risk assessment performed?: Yes Alcohol Intake: former Drug use: Current Sobriety Substance use type: former substance user, marijuana, crack/cocaine, heroin, amphetamines, sedatives, opiates, painkillers, methamphetamine and prescription drug Details: has been in corrections for 30 days Housing: other Do you feel safe at home: Yes Do you feel safe in your relationship?: No Meds Allergies and Home Medications Allergies Allergy/AdvReac Type Severity Reaction Status Date / Time cocoa Allergy Severe Anaphylaxis Verified 06/29/24 10:26 codeine Allergy Intermediate Nausea Verified 06/29/24 10:26 Sulfa (Sulfonamide AdvReac Intermediate Nausea Verified 06/29/24 10:26 Antibiotics) Home Medications ?Medication ?Instructions ?Recorded ?Confirmed ?Type albuterol sulfate 90 mcg/actuation 2 inh inhalation Q6H 06/04/24 06/29/24 History breath activated powder inhaler amoxicillin 875 mg-potassium 1 tab PO BID #10 tabs 06/04/24 06/29/24 Rx clavulanate 125 mg tablet budesonide-formoterol HFA 160 2 inh inhalation BID 06/04/24 06/29/24 History mcg-4.5 mcg/actuation aerosol inhaler (Symbicort) prednisone 20 mg tablet 40 mg (2 x 20 mg) PO ONCE #10 tabs 06/04/24 06/29/24 Rx buprenorphine 2 mg-naloxone 0.5 mg 2 film sublingual QAM 06/29/24 06/29/24 History sublingual film (Suboxone) buprenorphine 8 mg-naloxone 2 mg 1 film sublingual DAILY 06/29/24 06/29/24 History sublingual film (Suboxone) ciprofloxacin HCl 250 mg tablet 250 mg PO BID 06/29/24 06/29/24 History fluticasone furoate 100 1 inh inhalation DAILY 06/29/24 06/29/24 History mcg/actuation blister powder for inhalation (Arnuity Ellipta) furosemide 40 mg tablet 40 mg PO DAILY 06/29/24 06/29/24 History ipratropium 0.5 mg-albuterol 3 mg 3 ml inhalation QID PRN 06/29/24 06/29/24 History (2.5 mg base)/3 mL nebulization soln vit 137-ferrous fumarate 1 tab PO DAILY 06/29/24 06/29/24 History 27 mg iron-folic acid 0.8 mg tablet thiamine HCl (vitamin B1) 100 mg 100 mg PO DAILY 06/29/24 06/29/24 History tablet (Vitamin B-1) Exam Narrative Exam Narrative: Chronically ill-appearing male older than stated age no acute distress sitting up in his stretcher head is atraumatic eyes nonicteric noninjected oral mucosas slightly dry neck supple full range of motion cardiovascular regular rate and rhythm his respirations are even and unlabored there is no wheezing or coarse breath sounds appreciated he is diminished in the bases his abdomen is round soft nontender bilateral lower extremity with edema right greater than left, erythema to the right lower extremity greater than left, left lower extremity most consistent with a venous stasis dermatitis right lower extremity most concerning for a cellulitis. Neurologic he is awake alert oriented no focal deficits psychiatric appropriate mood and affect Results Labs 06/29/24 10:24 06/29/24 10:24 Labs: Laboratory Results - last 24 hr 06/29/24 06/29/24 06/29/24 10:24 11:19 13:19 WBC 9.77 RBC 4.27 L Hgb 12.9 L Hct 38.8 L MCV 91 MCH 30.2 MCHC 33.2 RDW 12.9 Plt Count 335 MPV 8.6 Immature Gran % 0.6 Neutrophils % 82.5 Lymphocytes % 9.3 Monocytes % 6.7 Eosinophils % 0.7 Basophils % 0.2 Nucleated RBC % 0.0 Absolute Neutrophils 8.06 H Absolute Lymphocytes 0.91 L Absolute Monocytes 0.65 Absolute Eosinophils 0.07 Absolute Basophils 0.02 PT 10.7 INR 1.1 APTT 25.9 D-Dimer 945 H VBG pH 7.41 VBG pCO2 46 VBG pO2 74 VBG HCO3 29 H VBG Total CO2 26 VBG O2 Saturation 96 VBG Base Excess 5 H Sodium 139 Potassium 3.6 Chloride 100 Carbon Dioxide 30.2 Anion Gap 8.8 BUN 12 Creatinine 0.9 Est GFR (CKD-EPI 2020) 99.00 Glucose 152 H Calcium 9.3 Magnesium 1.8 Total Bilirubin 0.4 AST 30 ALT 32 Alkaline Phosphatase 80 Troponin I < 4 5 Cancelled NT-Pro-B Natriuret Pep 461 H Total Protein 7.2 Albumin 3.3 L COVID-19 Source Nasopharynx SARS-CoV-2 (PCR) Negative Influenza Type A (PCR) Negative Influenza Type B (PCR) Negative RSV (PCR) Negative Last Vital Signs Temp 36.6 C 06/29/24 11:28 Pulse 92 H 06/29/24 13:31 Resp 16 06/29/24 13:31 BP 137/66 06/29/24 13:31 Pulse Ox 91 L 06/29/24 13:31 Time Spent Time spent with Patient: 55-74 minutes Time was spent: preparing to see the patient(eg.review tests), obtaining and/or reviewing separately otained hiistory, ordering medications,tests, procedures, referring, communicating with other health youth care specialist, indepentently interpreting results and counseling the patient
--- NOTE | 2024-06-29 15:47 | W.PC.ACHO ---
Registration Status: Primary Language: Preferred Language: ED Information & Data Chief Complaint SOB 06/29/24 10:26 Triage Note Pt reports increased SOB/ 06/29/24 10:16 difficulty breathing. Has new dx of lung nodules and not typically on oxygen. Reported increased swelling/ edema in lower extremities. Has significant bilateral edema, weeping. Not typically on O2, EMS reports satting in 80s on arrival, currently on 3 lpm NC with SpO2 94 and increased WOB. Most Recent Vital Signs Temperature 36.6 C 06/29/24 11:28 Temperature Source Oral 06/29/24 11:28 Pulse 92 H 06/29/24 15:00 Pulse 90 06/29/24 15:00 Respiratory Rate 23 06/29/24 15:00 Respiratory Effort Normal 06/29/24 10:32 Respiratory Depth Normal 06/29/24 10:32 Respiratory Pattern Normal 06/29/24 10:32 Blood Pressure 115/84 06/29/24 15:00 Blood Pressure Mean 93 06/29/24 13:31 Blood Pressure Position Sitting 06/29/24 10:16 Pulse Oximetry 95 06/29/24 15:00 Oxygen Delivery Method OxyMask 06/29/24 11:28 Oxygen Flow Rate 3 06/29/24 11:28 Pain Level 0 06/29/24 11:28 Allergies cocoa Allergy (Severe, Verified 06/29/24 10:26) Anaphylaxis codeine Allergy (Intermediate, Verified 06/29/24 10:26) Nausea Sulfa (Sulfonamide Antibiotics) Adverse Reaction (Intermediate, Verified 06/29/24 10:26) Nausea IV IV Catheter Type [Right Saline Lock Antecubital] IV Catheter Gauge [Right 18 Antecubital] Diet Orders Category Date Time Status Regular/Normal [DIET] Nutrition 06/29/24 Dinner Active Diagnostics 06/29/24 06/29/24 06/29/24 Range/Units 15:22 13:19 11:19 WBC (4.4-10.8) 10^3/uL RBC (4.36-5.78) 10^6/uL Hgb (13.5-17.5) g/dL Hct (40.0-50.0) % MCV (80-95) fL MCH (27.0-33.0) pg MCHC (32.0-36.0) % RDW (11.8-14.1) % Plt Count (130-400) 10^3/uL MPV (8.0-11.0) fL Immature Gran % % Neutrophils % % Lymphocytes % % Monocytes % % Eosinophils % % Basophils % % Nucleated RBC % (0.0-0.3) % Absolute Neutrophils (1.2-6.7) 10^3/uL Absolute Lymphocytes (1.2-3.4) 10^3/uL Absolute Monocytes (0.1-0.8) 10^3/uL Absolute Eosinophils (0.0-0.7) 10^3/uL Absolute Basophils (0.0-0.2) 10^3/uL PT (9.1-11.1) sec INR (0.9-1.1) APTT (20.6-30.2) sec D-Dimer (<500) ng/mlFEU VBG pH (7.31-7.41) VBG pCO2 (41-51) mmHg VBG pO2 mmHg VBG HCO3 (23-28) mmol/L VBG Total CO2 (24-29) mmol/L VBG O2 Saturation % VBG Base Excess (-2-3) mmol/L Sodium (136-145) mmol/L Potassium (3.5-5.1) mmol/L Chloride (98-107) mmol/L Carbon Dioxide (21.0-32.0) mmol/L Anion Gap (3-11) mmol/L BUN (7-18) mg/dL Creatinine (0.70-1.30) mg/dL Est GFR (CKD-EPI 2020) (mL/min/1.73m2) Glucose (74-106) mg/dL Calcium (8.5-10.1) mg/dL Magnesium (1.8-2.4) mg/dL Total Bilirubin (0.2-1.0) mg/dL AST (15-37) U/L ALT (16-63) U/L Alkaline Phosphatase (46-116) U/L Troponin I Cancelled 5 (<or=76) ng/L NT-Pro-B Natriuret Pep (<300) pg/mL Total Protein (6.4-8.2) g/dL Albumin (3.4-5.0) g/dL COVID-19 Source SARS-CoV-2 (PCR) (Negative) Influenza Type A (PCR) (Negative) Influenza Type B (PCR) (Negative) RSV (PCR) (Negative) Add-On Test Request Pending 06/29/24 Range/Units 10:24 WBC 9.77 (4.4-10.8) 10^3/uL RBC 4.27 L (4.36-5.78) 10^6/uL Hgb 12.9 L (13.5-17.5) g/dL Hct 38.8 L (40.0-50.0) % MCV 91 (80-95) fL MCH 30.2 (27.0-33.0) pg MCHC 33.2 (32.0-36.0) % RDW 12.9 (11.8-14.1) % Plt Count 335 (130-400) 10^3/uL MPV 8.6 (8.0-11.0) fL Immature Gran % 0.6 % Neutrophils % 82.5 % Lymphocytes % 9.3 % Monocytes % 6.7 % Eosinophils % 0.7 % Basophils % 0.2 % Nucleated RBC % 0.0 (0.0-0.3) % Absolute Neutrophils 8.06 H (1.2-6.7) 10^3/uL Absolute Lymphocytes 0.91 L (1.2-3.4) 10^3/uL Absolute Monocytes 0.65 (0.1-0.8) 10^3/uL Absolute Eosinophils 0.07 (0.0-0.7) 10^3/uL Absolute Basophils 0.02 (0.0-0.2) 10^3/uL PT 10.7 (9.1-11.1) sec INR 1.1 (0.9-1.1) APTT 25.9 (20.6-30.2) sec D-Dimer 945 H (<500) ng/mlFEU VBG pH 7.41 (7.31-7.41) VBG pCO2 46 (41-51) mmHg VBG pO2 74 mmHg VBG HCO3 29 H (23-28) mmol/L VBG Total CO2 26 (24-29) mmol/L VBG O2 Saturation 96 % VBG Base Excess 5 H (-2-3) mmol/L Sodium 139 (136-145) mmol/L Potassium 3.6 (3.5-5.1) mmol/L Chloride 100 (98-107) mmol/L Carbon Dioxide 30.2 (21.0-32.0) mmol/L Anion Gap 8.8 (3-11) mmol/L BUN 12 (7-18) mg/dL Creatinine 0.9 (0.70-1.30) mg/dL Est GFR (CKD-EPI 2020) 99.00 (mL/min/1.73m2) Glucose 152 H (74-106) mg/dL Calcium 9.3 (8.5-10.1) mg/dL Magnesium 1.8 (1.8-2.4) mg/dL Total Bilirubin 0.4 (0.2-1.0) mg/dL AST 30 (15-37) U/L ALT 32 (16-63) U/L Alkaline Phosphatase 80 (46-116) U/L Troponin I < 4 (<or=76) ng/L NT-Pro-B Natriuret Pep 461 H (<300) pg/mL Total Protein 7.2 (6.4-8.2) g/dL Albumin 3.3 L (3.4-5.0) g/dL COVID-19 Source Nasopharynx SARS-CoV-2 (PCR) Negative (Negative) Influenza Type A (PCR) Negative (Negative) Influenza Type B (PCR) Negative (Negative) RSV (PCR) Negative (Negative) Add-On Test Request Intake and Output - 24 Hour Total 06/29/24 10:07 thru 06/29/24 10:16 Weight 125.6 kg Falls Risk Assessment History of Falls No History 06/29/24 10:32 Contributing Factors No Factors 06/29/24 10:32 Ambulatory Aids Independent 06/29/24 10:32 Tubes/Lines None 06/29/24 10:32 Gait Evaluation No gait disturbance 06/29/24 10:32 Cognition No cognitive impairment 06/29/24 10:32 Fall Total Score 0 06/29/24 10:32 Level of Risk Standard/Low Risk 06/29/24 10:32 Problems (Last Reviewed 06/29/24 @ 10:25 by Colette Nieves NP) Acute hypoxic respiratory failure (Acute) Leg swelling (Acute) Hypoxia (Acute) Pulmonary nodule (Acute) COPD exacerbation (Acute) v v v v v v v v v Sending and/or Receiving Nurses: Please use comment section below to note any information pertinent to the patient hand-off not included above. Information / Comments: SOB, CHF (new diagnosis) BLE weeping, Lung nodules, Oxy mask 3 LPM, desaturation w/ exertion high 80's, duo nebs in ED, Solumedral administered. US ordered and will be done once techs get here. Accompanied by 2 c/o's. Vitals: 115/84, Resp 23, 92-93%, HR 92 Report received from: CESAR Hinds 15:36
--- NOTE | 2024-06-29 16:16 | PDOC.CMIN ---
Date of service: 06/29/24 Time of Service: 16:17 Care Management Initial Assmt Initial Assessment Reason for Hospitalization: Hypoxic Respiratory Failure, cellulites Functional Status/Living Situation Patient Presentation: Santino in being closely monitored and treated with IV ABX for cellulites. He is in c/o [facility] and has a guard in his room. Will return to [facility] after he is able to transition to PO abx. CM will follow. Town of Residence: [facility] Resides with: Other ([facility]) Employment Status: Unemployed Instrumental Activities of Daily Living (ADLs): Independent Medications Medication Management: No Issues/Barriers identified Physical Functioning/Mobility Assistive Device: None Advance Directives Advance Directives: Do you have an Advance Directive: N 06/29/24 10:21 AD On File at [facility]: N 06/29/24 10:21 Date Asked 06/29/24 06/29/24 10:21 AD Date Reviewed COLST On File at [facility] COLST Date Scanned Code Status Resuscitation Status Full Code Portal Pt does not currently have a portal and education provided: Yes Insurance Coverage/Financial Issues Insurance: [facility] - [id number] Care Team Visit Care Team Role Provider Type Unknown Unknown Primary Care Provider STAFF PHYSICIAN Colette Nieves NP Emergency Provider NURSE PRACTITIONER Monty Perez MD Admit Provider [facility] STAFF PHYSICIAN Attending Provider Discharge Potential Discharge Needs: PCP F/U Appt Anticipated Barriers to Discharge: None Identified Patient/Family Education Needs: Review discharge instructions, discuss Ask Me Three Transportation: Facility Transport ([facility]) Plan: Santino will return to the [facility] via facility staff when medically ready for discharge. Pt will follow up with community providers and discharge plan of care as directed. CM will continue to follow. Social Determinants of Health Screening Social Determinants of health last assessed in clinic: 06/30/24 Will the Patient Participate in the Screening?: Yes Do you worry about having a steady place to live?: no Problems where you live: no known problems In the past 12 months, have you had to go without electric, gas, oil or water in your home?: no 1. Within the past 12 months, we worried whether our food would run out before we got money to buy more.: Never true 2. Within the past 12 months, the food we bought just didn't last and we didn't have money to get more.: Never true Has lack of transportation kept you from medical appointments or from doing things needed for daily living?: no Has anyone in your life made you feel unsafe or unsupported?: no How hard is it for you to pay for the very basics like food, housing, medical care, and heating? Would you say it is:: Not hard at all Do you want help finding or keeping work or a job?: I do not need or want help If for any reason you need help with day-to-day activities such as bathing, preparing meals, shopping, managing finances, etc., do you get the help you need?: I don?t need any help How often do you feel lonely or isolated from those around you?: Never Do you speak a language other than Syrian at home?: No Does the patient want assistance with any of the above?: No PFSH All Active Problems (Updated 06/29/24 @ 17:00 by Belia Schofield NP) Opioid dependence (Acute) Cellulitis of right lower extremity (Acute) Acute hypoxic respiratory failure (Acute) Leg swelling (Acute) Hypoxia (Acute) Pulmonary nodule (Acute) COPD exacerbation (Acute) Pneumonia (Acute) Social History Smoking/Tobacco Use Status: Former Tobacco Use Tobacco: How many years used: 45 Smoking risk assessment performed?: Yes Alcohol Intake: former Drug use: Current Sobriety Substance use type: former substance user, marijuana, crack/cocaine, heroin, amphetamines, sedatives, opiates, painkillers, methamphetamine and prescription drug Details: has been in corrections for 30 days Housing: other Do you feel safe at home: Yes Do you feel safe in your relationship?: No
[2024-06-29] MEDS: Enoxaparin 40 MG/0.4 ML SYR SC (16:43)
[2024-06-29 17:04] LABS: Lab Add On Test DONE
[2024-06-29 17:22] LABS: ESR 39 mm/hr (0-20)
[2024-06-29 17:27] LABS: C-Reactive Protein 2.53 mg/dL (<or=0.5)
[2024-06-29 17:41] LABS: Procalcitonin 0.12 ng/mL
--- NOTE | 2024-06-29 17:41 | DI.VRAD_ITS ---
PROCEDURE INFORMATION: Exam: US Duplex Lower Extremity Veins, Bilateral Exam date and time: 06/29/2024 5:00 PM Age: 59 years old Clinical indication: Other: Swelling, R/O dvt TECHNIQUE: Imaging protocol: Real-time duplex ultrasound of the bilateral extremities with 2-D patrick scale, color Doppler flow and spectral waveform analysis including responses to compression and other maneuvers (when performed) with image documentation. Complete exam focused on the lower extremity veins. COMPARISON: No relevant prior studies available. FINDINGS: Right deep veins: The deep venous system is evaluated from the level of the common femoral vein to the proximal calf. No filling defects identified. The posterior vein is also visualized. There is normal compressibility and augmentation throughout. Left deep veins: The deep venous system is evaluated from the common femoral vein to the proximal calf. The left posterior tibial vein is also evaluated. Superficial veins: The proximal greater saphenous veins of the right and left are visualized and are unremarkable. Soft tissues: There is diffuse subcutaneous edema in both calves. No loculated fluid collections are identified. IMPRESSION: 1. No evidence of venous thrombosis in either lower extremity. 2. Diffuse subcutaneous edema in both calves without evidence of abscess or hematoma. Dictated and Authenticated by: Tab Hussein MD. Orderin Lizbeth Alvarenga MD
[2024-06-29] MEDS: ceFAZolin 2 GM/50 ML BAG IVPB (18:02)
[2024-06-29] MEDS: Normal Saline Flush 10 ML SYR IVP (19:37)
[2024-06-30] VITALS (7 sets, daily range): BP systolic 100–148; BP diastolic 60–84; PULSE 63–89; RESP 2–20; TEMP 36–36.7; O2SAT 93–96
[2024-06-30] MEDS: ceFAZolin 2 GM/50 ML BAG IVPB ×3 (01:54→18:10)
[2024-06-30] MEDS: Albuterol/Ipratropium 3 ML UPD VIAL IH ×2 (06:05→15:45)
[2024-06-30 06:42] LABS: Abs Immature Grans 0.08 10^3/uL (0.0-0.06); Absolute Basophil Count 0.01 10^3/uL (0.0-0.2); Absolute Eosinophil Count 0.01 10^3/uL (0.0-0.7); Absolute Lymphocyte Count 1.06 10^3/uL (1.2-3.4); Absolute Monocyte Count 0.85 10^3/uL (0.1-0.8); Absolute Neutrophil Count 6.45 10^3/uL (1.2-6.7); Basophils % 0.1 %; Eosinophils % 0.1 %; HCT 41.4 % (40.0-50.0); HGB 13.6 g/dL (13.5-17.5); Immature Grans % 0.9 %; Lymphocytes % 12.5 %; MCH 29.9 pg (27.0-33.0); MCHC 32.9 % (32.0-36.0); MCV 91 fL (80-95); MPV 8.6 fL (8.0-11.0); Neutrophils % 76.4 %; Platelet Count 404 10^3/uL (130-400); RBC 4.55 10^6/uL (4.36-5.78); RDW 13.1 % (11.8-14.1); WBC 8.46 10^3/uL (4.4-10.8)
[2024-06-30 06:54] LABS: Anion Gap 5.6 mmol/L (3-11); BUN 10 mg/dL (7-18); CO2 33.4 mmol/L (21.0-32.0); CREATININE 0.8 mg/dL (0.70-1.30); Calcium 9.5 mg/dL (8.5-10.1); Chloride 100 mmol/L (98-107); Estimated GFR 102.58 (mL/min/1.73m2); Glucose 104 mg/dL (74-106); Potassium 4.6 mmol/L (3.5-5.1); Sodium 139 mmol/L (136-145)
[2024-06-30] MEDS: Budesonide/Formoterol 160/4.5 6 GM 60 PUFF INH IH ×2 (08:28→19:45)
[2024-06-30] MEDS: Normal Saline Flush 10 ML SYR IVP ×3 (09:24→16:34)
[2024-06-30] MEDS: Buprenorphine/Naloxone 2 mg/0.5 mg FILM 2 EACH SL (09:27)
[2024-06-30] MEDS: Thiamine 100 MG TAB PO (09:27)
[2024-06-30] MEDS: Buprenorphine/Naloxone 8 mg/2 mg FILM 1 EACH SL (09:27)
[2024-06-30] MEDS: Furosemide 40 MG TAB PO (09:27)
--- NOTE | 2024-06-30 14:58 | W.PM.PROGNOT ---
Date of Service Date of service: 06/30/24 Time of Service: 14:58 Assessment and Plan Assessment and plan (1) Cellulitis of right lower extremity: Status: Acute Assessment and plan: Elevate above the level of the heart is much as possible throughout the day. continue cefazolin 2 gm every 8 hours add inflammatory markers, trend as appropriate. (2) Acute hypoxic respiratory failure: Status: Resolved Assessment and plan: No PE or pneumonia on CTangio chest. resp viral panel negative. has been weaned off oxgyen and now satting 94% on room air continue inhalers, pulmonary toileting (3) COPD exacerbation: Status: Acute Assessment and plan: No evidence of and acute exacerbation with no reports of increased cough or sputum production and no wheezing on physical exam Will continue symbicort and fluticasone add duoneb and albuterol prn was given IV methylprednisone in ED, will hold off on further steroids at this time incentive spirometry (4) Pulmonary nodule: Status: Acute Assessment and plan: will need outpatient f/u (5) Leg swelling: Status: Acute Assessment and plan: elevate, compression US bilateral legs for DVT negative continue diuretics, IV furosemide BID follow kidney function and electrolytes closely monitor i&O compression right greater than left edema, US negative for DVT (6) Opioid dependence: Status: Acute Assessment and plan: Continue Suboxone home dose Discussed with Dr. Perez Subjective Subjective Patient reports: no new complaints, feels better, tolerating liquids well, tolerating a regular diet, voiding w/o difficulty and afebrile; denies shortness of breath Interval history since last seen: right lower extremity red and weeping, blisters now appearing. continues to be more swollen than left. no fever, hemodynamically stable. no new c/o. no oxygen requirements Exam Narrative Exam Narrative: Chronically ill-appearing male older than stated age no acute distress sitting up in his stretcher head is atraumatic eyes nonicteric noninjected oral mucosas slightly dry neck supple full range of motion cardiovascular regular rate and rhythm his respirations are even and unlabored there is no wheezing or coarse breath sounds appreciated he is diminished in the bases his abdomen is round soft nontender bilateral lower extremity with edema right greater than left, legs wraps and not visualized today, nursing reports blistering, asked to uplaoded pictures, Neurologic he is awake alert oriented no focal deficits psychiatric appropriate mood and affect Objective Last Vital Signs Temp 36.4 C L 06/30/24 07:44 Pulse 75 06/30/24 07:44 Resp 18 06/30/24 07:44 BP 137/84 06/30/24 07:44 Pulse Ox 96 06/30/24 07:44 Laboratory Results - last 24 hr 06/29/24 06/29/24 06/29/24 10:24 11:19 11:19 WBC RBC Hgb Hct MCV MCH MCHC RDW Plt Count MPV Immature Gran % Neutrophils % Lymphocytes % Monocytes % Eosinophils % Basophils % Nucleated RBC % Absolute Neutrophils Absolute Lymphocytes Absolute Monocytes Absolute Eosinophils Absolute Basophils ESR 39 H Sodium Potassium Chloride Carbon Dioxide Anion Gap BUN Creatinine Est GFR (CKD-EPI 2020) Glucose Calcium C-Reactive Protein 2.53 H Procalcitonin 0.12 Add-On Test Request DONE DONE 06/30/24 06:10 WBC 8.46 RBC 4.55 Hgb 13.6 Hct 41.4 MCV 91 MCH 29.9 MCHC 32.9 RDW 13.1 Plt Count 404 H MPV 8.6 Immature Gran % 0.9 Neutrophils % 76.4 Lymphocytes % 12.5 Monocytes % 10.0 Eosinophils % 0.1 Basophils % 0.1 Nucleated RBC % 0.0 Absolute Neutrophils 6.45 Absolute Lymphocytes 1.06 L Absolute Monocytes 0.85 H Absolute Eosinophils 0.01 Absolute Basophils 0.01 ESR Sodium 139 Potassium 4.6 D Chloride 100 Carbon Dioxide 33.4 H Anion Gap 5.6 BUN 10 Creatinine 0.8 Est GFR (CKD-EPI 2020) 102.58 Glucose 104 Calcium 9.5 C-Reactive Protein Procalcitonin Add-On Test Request Time Spent with Patient Time Spent with Patient: 35-49 minutes Time was spent: preparing to see the patient(eg.review tests), obtaining and/or reviewing separately otained hiistory, ordering medications,tests, procedures, indepentently interpreting results and counseling the patient
[2024-06-30] MEDS: Furosemide 40 MG/4 ML VIAL IVP (16:34)
[2024-06-30] MEDS: Enoxaparin 40 MG/0.4 ML SYR SC (16:34)
[2024-07-01] VITALS (8 sets, daily range): BP systolic 113–128; BP diastolic 71–93; PULSE 67–85; RESP 2–20; TEMP 36.6–36.8; O2SAT 88–98
[2024-07-01] MEDS: ceFAZolin 2 GM/50 ML BAG IVPB ×3 (02:28→17:52)
[2024-07-01] MEDS: Normal Saline Flush 10 ML SYR IVP ×3 (02:28→20:05)
[2024-07-01 07:07] LABS: Absolute Basophil Count 0.05 10^3/uL (0.0-0.2); Absolute Eosinophil Count 0.16 10^3/uL (0.0-0.7); Absolute Lymphocyte Count 3.03 10^3/uL (1.2-3.4); Absolute Monocyte Count 0.77 10^3/uL (0.1-0.8); Absolute Neutrophil Count 5.42 10^3/uL (1.2-6.7); Basophils % 0.5 %; Eosinophils % 1.7 %; HCT 42.1 % (40.0-50.0); HGB 13.6 g/dL (13.5-17.5); Lymphocytes % 31.8 %; MCH 29.8 pg (27.0-33.0); MCHC 32.3 % (32.0-36.0); MCV 92 fL (80-95); MPV 8.6 fL (8.0-11.0); Monocytes % 8.1 %; Neutrophils % 56.9 %; Platelet Count 383 10^3/uL (130-400); RBC 4.56 10^6/uL (4.36-5.78); WBC 9.53 10^3/uL (4.4-10.8)
[2024-07-01 07:11] LABS: ESR 17 mm/hr (0-20)
[2024-07-01 07:25] LABS: ALT 26 U/L (16-63); AST 18 U/L (15-37); Albumin 3.3 g/dL (3.4-5.0); Alkaline Phosphatase 73 U/L (46-116); Anion Gap 3.4 mmol/L (3-11); BUN 18 mg/dL (7-18); Bilirubin, Total 0.4 mg/dL (0.2-1.0); C-Reactive Protein 1.12 mg/dL (<or=0.5); CO2 36.6 mmol/L (21.0-32.0); Calcium 9.5 mg/dL (8.5-10.1); Chloride 99 mmol/L (98-107); Estimated GFR 87.24 (mL/min/1.73m2); Glucose 101 mg/dL (74-106); Potassium 3.9 mmol/L (3.5-5.1); Sodium 139 mmol/L (136-145)
[2024-07-01] MEDS: Buprenorphine/Naloxone 2 mg/0.5 mg FILM 2 EACH SL (07:38)
[2024-07-01] MEDS: Buprenorphine/Naloxone 8 mg/2 mg FILM 1 EACH SL (07:38)
[2024-07-01] MEDS: Thiamine 100 MG TAB PO (07:39)
[2024-07-01] MEDS: Bacitracin 1 PACKET TP ×2 (07:40→20:05)
[2024-07-01] MEDS: Furosemide 40 MG/4 ML VIAL IVP ×2 (07:40→16:19)
--- NOTE | 2024-07-01 07:53 | WOUNDCONS_ITS ---
Date of service: 06/30/24 Time of Service: 21:00 Wound Initial Evaluation Narrative Narrative: Patient is a 59 year old obese incarcerated patient who was admitted on 06/29/24 for hypoxic respiratory failure/COPD exacerbation. At admission patient was noted to have bilateral lower extremity edema with the right leg more swollen than the left. The right leg also has erythema extending upward medially from the ankle to above the knee. The patient reported to this database report writer that the erythema and edema has decreased since admission. Of note, patient was treated in May for pneumonia with antibiotics and steroids. Patient is opioid dependent and is a current tobacco smoker. The patient is agreeable to the wound consult and signed the photo consent. This database report writer reviewed the H&P, progress notes, recent vital signs and the allergy list. Also noted is the BMI at 39.7, ESR is 39 and CRP is 2.53. Wound Right Lower Leg: Wound Drainage Amount: Moderate Wound Drainage Odor: None/Absent Wound Drainage Description: Serous Left lower Leg: Wound Drainage Amount: Moderate Wound Drainage Odor: None/Absent Wound Drainage Description: Serous Circulation, Sensation, Motion Edema Degree: 3+ Peripheral Pulse Strength: Absent Capillary Refill: Less than 3 seconds Sensation Description: Numbness Skin Temperature: Warm Skin Color: Erythema and Hyperpigmentation Additional Other Comments: Patient reports numbness on right foot for 2nd -4th toes. Hemosiderin staining is evident on distal areas of bilateral lower extremities. MALIKA Left MALIKA: 0.83 Right MALIKA: 0.93 Comment:: Right calf circumference is 18 and left calf circumference is 17 Pain Additional Other Comments: Patient denies pain. Patient describes being uncomfortable and embarrassed with the foot edema. Wound Summary Wound Summary: Bilateral lower extremity edema and erythema with right greater than the left. At assessment, the Cosme bandage and non-adherent dressings were removed exposing the non-tender flattened circular blisters (blisters were described from the previous nurse's report). During assessment the wound area has loosely adherent weeping slough. Surrounding area has friable skin some of which is shiny and taut. Moderate serous exudate is noted on the non-adherent dressings. Again, the right leg produced more exudate than the left. Erythema is noted on the right leg to extend upward from the ankle to medial thigh. Photo Photo: Treatment/Dressing Change Topicals/Ointments: Other Additional Other Comments: Wound cleanser sprayed on lower extremities, allowed to dwell for 2 minutes then was patted dry with gauze pads. Legs will have Bacitracin applied to open areas with Telfa for exudate absorption and secured with an Cosme. Nutrition Education Reviewed Nutrition Education: Yes Note: Protein selection was discussed with the patient with the rationale of optimum healing when protein intake is increased. Patient agrees to be selective with the menu and will consider better choices with protein offerings. Recomendation Recomendation:: Change dressing twice daily Remove dressings and spray lower extremities with wound cleanser Let dwell for 2 minutes and pat dry Apply thin layer of Bacitracin ointment on open areas Apply non-adherent gauze pad to open areas Secure in place with Cosme wrap Encourage patient to keep legs elevated When cellulitis has cleared switch patient to a Patsy Boot with weekly dressing changes Physcian/Nurse Practioner Notified: Yes
[2024-07-01] MEDS: Budesonide/Formoterol 160/4.5 6 GM 60 PUFF INH IH ×2 (08:21→19:56)
[2024-07-01] MEDS: Albuterol/Ipratropium 3 ML UPD VIAL IH ×2 (09:06→14:09)
--- NOTE | 2024-07-01 11:23 | PDOC.CMPRO ---
Care Management Progress Note Progress Note Text Progress Note Text: Santino (nenitas Néstor) was sitting in bed, accompanied by his two correctional officers in the room when CM arrived. He presented to the ED with increased shortness of breath, and bilateral leg swelling with weeping over the last 4 days. Néstor was transported from the long term to [facility] by ambulance. Néstor shared the following concerns: understanding the medical information he is presented with, being unable to access the portal, no communication with family, and no access to his medical records. The correction officers explained that he cannot create the portal while inpatient/incarcerated since the facility denies access to internet and phone; Néstor can regain access to his medical records once release from incarceration (confirmed by Vince Dasilva). The correction officers also explained that, no person can be notified of Néstor medical admission, even if listed on the HIPAA (confirmed by Vince Dasilva). If any person calls regarding Néstor, they are to be referred to the Penitentiary. Néstor states he is fearful of dying alone, since he cannot contact his family. He states, he is feeling confused on what is going on because so many people are going in and out of his room, its hard to keep up. Per Néstor, he is hopeful that he will be released from long term soon; he is awaiting a call from his erisa attorney. The long term does not currently have a provider, but any orders sent by [facility] which can be followed by RN's at the facility. CM gave this update to RN. Discharge Plan: Néstor will be discharged back to long term once medically ready. He will follow up with his community provider and continue per his plan of care. CM will continue to follow. Social Determinants of Health Screening Social Determinants of health last assessed in clinic: 06/30/24 Will the Patient Participate in the Screening?: Yes Do you worry about having a steady place to live?: no Problems where you live: no known problems In the past 12 months, have you had to go without electric, gas, oil or water in your home?: no Has lack of transportation kept you from medical appointments or from doing things needed for daily living?: no Has anyone in your life made you feel unsafe or unsupported?: no How hard is it for you to pay for the very basics like food, housing, medical care, and heating? Would you say it is:: Not hard at all Do you want help finding or keeping work or a job?: I do not need or want help If for any reason you need help with day-to-day activities such as bathing, preparing meals, shopping, managing finances, etc., do you get the help you need?: I don?t need any help How often do you feel lonely or isolated from those around you?: Never Do you speak a language other than Cape Verdean at home?: No Does the patient want assistance with any of the above?: No Comments: Patient is currently incarcerated
--- NOTE | 2024-07-01 12:14 | PDOC.CMIN ---
Date of service: 07/01/24 Time of Service: 12:22 Care Management Initial Assmt Initial Assessment Reason for Hospitalization: hypoxic respiratory failure, COPD exacerbation Functional Status/Living Situation Patient Presentation: Santino (nenitas Néstor) was sitting in bed, accompanied by his two correctional officers in the room when SUZANNE arrived. He presented to the ED with increased shortness of breath, and bilateral leg swelling with weeping over the last 4 days. Néstor was transported from the senior care to [facility] by ambulance. Néstor shared the following concerns: understanding the medical information he is presented with, being unable to access the portal, no communication with family, and no access to his medical records. The correction officers explained that he cannot create the portal while inpatient/incarcerated since the facility denies access to internet and phone; Néstor can regain access to his medical records once release from incarceration (confirmed by Vince Dasilva). The correction officers also explained that, no person can be notified of Néstor medical admission, even if listed on the HIPAA (confirmed by Vince Dasilva). If any person calls regarding Néstor, they are to be referred to the Prison. Néstor states he is fearful of dying alone, since he cannot contact his family. He states, he is feeling confused on what is going on because so many people are going in and out of his room, its hard to keep up. Per Néstor, he is hopeful that he will be released from senior care soon; he is awaiting a call from his patent prosecution attorney. The senior care does not currently have a provider, but any orders sent by [facility] which can be followed by RN's at the facility. gave this update to RN. Per Lisa (Farm Reporter at senior care - ), ........ will be available for a community provider, until the facility has found someone. Advance Directives Advance Directives: Do you have an Advance Directive: N 06/29/24 10:21 AD On File at [facility]: N 06/29/24 10:21 Date Asked 06/29/24 06/29/24 10:21 AD Date Reviewed COLST On File at [facility] COLST Date Scanned Code Status Resuscitation Status Full Code Care Team Visit Care Team Role Provider Type Lia Roque NP MD [facility] STAFF PHYSICIAN Unknown Unknown Primary Care Provider STAFF PHYSICIAN Colette Nieves NP Emergency Provider NURSE PRACTITIONER Monty Perez MD Admit Provider MD GARCIA STAFF PHYSICIAN Attending Provider Discharge Plan: Anticipate Néstor will be discharged back to senior care once medically ready. He will follow up with his community providers and continue per his plan of care. Néstor will be transported by the senior care. CM will continue to follow. Social Determinants of Health Screening Social Determinants of health last assessed in clinic: 06/30/24 Will the Patient Participate in the Screening?: Yes Do you worry about having a steady place to live?: no Problems where you live: no known problems In the past 12 months, have you had to go without electric, gas, oil or water in your home?: no Has lack of transportation kept you from medical appointments or from doing things needed for daily living?: no Has anyone in your life made you feel unsafe or unsupported?: no How hard is it for you to pay for the very basics like food, housing, medical care, and heating? Would you say it is:: Not hard at all Do you want help finding or keeping work or a job?: I do not need or want help If for any reason you need help with day-to-day activities such as bathing, preparing meals, shopping, managing finances, etc., do you get the help you need?: I don?t need any help How often do you feel lonely or isolated from those around you?: Never Do you speak a language other than Portuguese at home?: No Does the patient want assistance with any of the above?: No Comments: Patient is currently incarcerated [facility] All Active Problems (Updated 06/30/24 @ 15:01 by Belia Schofiedl NP) Opioid dependence (Acute) Cellulitis of right lower extremity (Acute) Leg swelling (Acute) Hypoxia (Acute) Pulmonary nodule (Acute) COPD exacerbation (Acute) Pneumonia (Acute) Social History Smoking/Tobacco Use Status: Former Tobacco Use Tobacco: How many years used: 45 Smoking risk assessment performed?: Yes Alcohol Intake: former Drug use: Current Sobriety Substance use type: former substance user, marijuana, crack/cocaine, heroin, amphetamines, sedatives, opiates, painkillers, methamphetamine and prescription drug Details: has been in corrections for 30 days Housing: other Do you feel safe at home: Yes Do you feel safe in your relationship?: No
--- NOTE | 2024-07-01 12:27 | PDOC.CMPRO ---
Date of service: 07/01/24 Time of Service: 12:28 Care Management Progress Note Progress Note Text Progress Note Text: Néstor was sitting in bed, accompanied by two correctional officers in the room, when CM arrived. He presented to the ED with increased shortness of breath, and bilateral leg swelling with weeping over the last 4 days. Néstor was transported from the [facility], to [facility] by ambulance. Néstor shared the following concerns: understanding the medical information he is presented with, being unable to access the portal, no communication with family, and no access to his medical records. The correctional officers explained that he cannot create the portal while inpatient/incarcerated, since the facility denies access to internet and phone; Néstor can regain access to his medical records if requested through DOC when back at facility or when release from incarceration. The correctional officers also explained that no person, can be notified of Néstor's medical admission outside of facility staff, even if listed on the HIPAA. Legal and risk was notified. If anyone calls regarding Néstor, they are to be referred to [facility]. CM gave this update to RN. Néstor states he is fearful of dying alone, since he cannot contact his family. He states, he is feeling confused on what is going on because so many people are going in and out of his room, its hard to keep up. CM requested that RN provide information on his current treatments. Per Néstor, he is hopeful that he will be released from [facility] soon; he is awaiting a call from his claim attorney. Discharge Potential Discharge Needs: PCP F/U Appt Anticipated Barriers to Discharge: Medical Status Patient/Family Education Needs: Review discharge instructions, discuss Ask Me Three Transportation: Facility Transport ([facility]) Plan: Anticipate Néstor will return to the [facility] via facility staff when medically ready for discharge. Pt will follow up with community providers and discharge plan of care as directed. CM will continue to follow. Social Determinants of Health Screening Social Determinants of health last assessed in clinic: 07/01/24 Will the Patient Participate in the Screening?: Yes Do you worry about having a steady place to live?: no Problems where you live: no known problems In the past 12 months, have you had to go without electric, gas, oil or water in your home?: no 1. Within the past 12 months, we worried whether our food would run out before we got money to buy more.: Don't know/refused 2. Within the past 12 months, the food we bought just didn't last and we didn't have money to get more.: Don't know/refused Has lack of transportation kept you from medical appointments or from doing things needed for daily living?: no Has anyone in your life made you feel unsafe or unsupported?: no How hard is it for you to pay for the very basics like food, housing, medical care, and heating? Would you say it is:: Not hard at all Do you want help finding or keeping work or a job?: I do not need or want help If for any reason you need help with day-to-day activities such as bathing, preparing meals, shopping, managing finances, etc., do you get the help you need?: I don?t need any help How often do you feel lonely or isolated from those around you?: Never Do you speak a language other than Taiwanese at home?: No Does the patient want assistance with any of the above?: No Comments: Patient is currently incarcerated
[2024-07-01] MEDS: Enoxaparin 40 MG/0.4 ML SYR SC (16:18)
[2024-07-02] VITALS (8 sets, daily range): BP systolic 107–124; BP diastolic 70–109; PULSE 65–88; RESP 3–19; TEMP 36–37.6; O2SAT 18–92
--- NOTE | 2024-07-02 | DI.US_ITS ---
Exam(s) US ABDOMEN EXAM: US ABDOMEN CLINICAL HISTORY: ? ascites TECHNIQUE: Ultrasound of complete upper abdomen performed using standard protocol. COMPARISON: US US EXTREMITY VENOUS BI from 06/29/2024 FINDINGS: There is no ascites evident. LIVER: Liver is hyperechoic indicating steatosis. There no discrete focal hepatic lesions identified . GALLBLADDER/BILIARY: There are no gallstones. No gallbladder wall edema nor pericholecystic fluid. The common hepatic duct isnot dilated, measuring 3mm at the level of stefany hepatis. PANCREAS: There is no evidence of pancreatic mass nor dilatation of the pancreatic duct. SPLEEN: Spleen is mild-moderately enlarged, measuring 14.1 cm length. There no discrete intrasplenic lesions. KIDNEYS:Kidneys exhibit normal size with no evidence of solid mass, calculus, nor hydronephrosis. No cortical cysts evident. ABDOMINAL AORTA: Obscured by overlying bowel gas IVC: Normal diameter where visualized. IMPRESSION: 1. No evidence of cholelithiasis nor dilatation of the biliary tree. 2. Splenomegaly noted. Craniocaudal length of the spleen is 14 cm. Upper normal is 13 cm. 3. There is less than optimal visualization of the abdominal aorta due to midline bowel gas as obscu ring the aorta. DATA REPOSITORY:
[2024-07-02] MEDS: ceFAZolin 2 GM/50 ML BAG IVPB ×3 (01:49→18:26)
[2024-07-02] MEDS: Albuterol/Ipratropium 3 ML UPD VIAL IH ×2 (08:02→19:14)
[2024-07-02] MEDS: Budesonide/Formoterol 160/4.5 6 GM 60 PUFF INH IH ×2 (08:08→19:14)
[2024-07-02] MEDS: Thiamine 100 MG TAB PO (08:18)
[2024-07-02] MEDS: Buprenorphine/Naloxone 8 mg/2 mg FILM 1 EACH SL (08:19)
[2024-07-02] MEDS: Buprenorphine/Naloxone 2 mg/0.5 mg FILM 2 EACH SL (08:20)
[2024-07-02] MEDS: Furosemide 40 MG/4 ML VIAL IVP ×2 (09:03→16:57)
[2024-07-02] MEDS: Normal Saline Flush 10 ML SYR IVP ×4 (09:03→20:39)
--- NOTE | 2024-07-02 09:03 | W.PM.PROGNOT ---
Date of Service Date of service: 07/01/24 Time of Service: 14:00 Assessment and Plan Assessment and plan (1) Cellulitis of right lower extremity: Status: Acute Assessment and plan: Elevate above the level of the heart is much as possible throughout the day. continue cefazolin 2 gm every 8 hours CRP 1.12 trend as appropriate. (2) Acute hypoxic respiratory failure: Status: Resolved Assessment and plan: No PE or pneumonia on CT angio chest. resp viral panel negative. has been weaned off oxgyen and now satting 94% on room air continue inhalers, pulmonary toileting Abdomen large - US [facility] for 5/ (3) COPD exacerbation: Status: Acute Assessment and plan: No evidence of and acute exacerbation with no reports of increased cough or sputum production and no wheezing on physical exam Will continue symbicort and fluticasone continue duonebs and albuterol incentive spirometry (4) Pulmonary nodule: Status: Acute Assessment and plan: will need outpatient f/u (5) Leg swelling: Status: Acute Assessment and plan: elevate, compression US bilateral legs for DVT negative continue diuretics, IV furosemide BID follow kidney function and electrolytes closely monitor i&O compression right greater than left edema, US negative for DVT (6) Opioid dependence: Status: Acute Assessment and plan: Continue Suboxone home dose Discussed with Dr. Perez Subjective Subjective Patient reports: no new complaints Interval history since last seen: right lower extremity red and weeping, no fever, hemodynamically stable. No oxygen requirements. Wound care consult pending. Exam Narrative Exam Narrative: General Appearance: Alert and oriented. Vital signs: Oxygen saturation 95% on room air. HEENT: Within normal limits. Respiratory: Mildly diminished breath sounds and rhonchi in lungs. Skin: Warm and dry, no rash. Leg is wrapped Neurological: Normal. Objective Last Vital Signs Temp 37.6 C H 07/02/24 08:35 Pulse 86 07/02/24 08:35 Resp 19 07/02/24 08:35 BP 122/109 H 07/02/24 08:35 Pulse Ox 18 L 07/02/24 08:35 Time Spent with Patient Time Spent with Patient: 25-34 minutes Time was spent: preparing to see the patient(eg.review tests), ordering medications,tests, procedures, referring, communicating with other health health care facilities inspector, indepentently interpreting results, counseling the patient and care coordination
[2024-07-02] MEDS: Bacitracin 1 PACKET TP ×2 (09:04→20:39)
[2024-07-02 10:10] LABS: Abs Immature Grans 0.13 10^3/uL (0.0-0.06); Absolute Basophil Count 0.05 10^3/uL (0.0-0.2); Absolute Eosinophil Count 0.19 10^3/uL (0.0-0.7); Absolute Lymphocyte Count 2.36 10^3/uL (1.2-3.4); Absolute Monocyte Count 0.72 10^3/uL (0.1-0.8); Absolute Neutrophil Count 4.84 10^3/uL (1.2-6.7); Basophils % 0.6 %; Eosinophils % 2.3 %; HCT 43.5 % (40.0-50.0); HGB 14.6 g/dL (13.5-17.5); Immature Grans % 1.6 %; Lymphocytes % 28.5 %; MCH 29.9 pg (27.0-33.0); MCHC 33.6 % (32.0-36.0); MCV 89 fL (80-95); MPV 8.4 fL (8.0-11.0); Monocytes % 8.7 %; Neutrophils % 58.3 %; Platelet Count 399 10^3/uL (130-400); RBC 4.88 10^6/uL (4.36-5.78); RDW 13.1 % (11.8-14.1); RDW-SD 42.9 fL; WBC 8.29 10^3/uL (4.4-10.8)
[2024-07-02 10:23] LABS: ALT 22 U/L (16-63); AST 17 U/L (15-37); Albumin 3.5 g/dL (3.4-5.0); Alkaline Phosphatase 79 U/L (46-116); Anion Gap 4.3 mmol/L (3-11); BUN 16 mg/dL (7-18); Bilirubin, Total 0.4 mg/dL (0.2-1.0); C-Reactive Protein 1.15 mg/dL (<or=0.5); CO2 36.7 mmol/L (21.0-32.0); CREATININE 0.9 mg/dL (0.70-1.30); Calcium 9.3 mg/dL (8.5-10.1); Chloride 96 mmol/L (98-107); Glucose 119 mg/dL (74-106); Potassium 3.6 mmol/L (3.5-5.1); Sodium 137 mmol/L (136-145); Total Protein 7.4 g/dL (6.4-8.2)
--- NOTE | 2024-07-02 10:30 | DI.US_ITS ---
APPROVED REPORT EXAM: Comprehensive 2D, Doppler, and color-flow Echocardiogram Patient Location: In-Patient Room/Bed: [address] Clam: Hilario Valderrama RDCS (AE) Indications: CHF Other Information Study Quality: Adequate Conclusion Normal left ventricular wall thickness and chamber size. Ejection fraction is 65%. Wall motion is n ormal Normal right ventricular size and function Both atria are normal in size The aortic valve is mildly sclerotic and trileaflet without stenosis or regurgitation There is no additional significant valvular disease Wall motion Left Ventricle The left ventricle is normal size. The left ventricular systolic function is normal. The left ventric ular ejection fraction is within the normal range. There is normal left ventricular wall thickness. T here is normal LV segmental wall motion. There is no ventricular septal defect visualized. LVEF is 65 %. Right Ventricle The right ventricle is normal size. The right ventricular systolic function is normal. Atria The left atrium size is normal. The right atrium size is normal. The interatrial septum is intact wit h no evidence for an atrial septal defect. Aortic Valve The aortic valve is mildly sclerotic. There is no aortic valvular stenosis. No aortic regurgitation i s present. Mitral Valve The mitral valve is normal in structure. No evidence of mitral valve stenosis. There is no mitral nazario ve regurgitation noted. Tricuspid Valve The tricuspid valve is normal in structure. There is no tricuspid valve stenosis. Trace tricuspid reg urgitation. Pulmonic Valve The pulmonary valve is normal in structure. There is no pulmonic valvular stenosis. There is no pulmo bo valvular regurgitation. Great Vessels The aortic root is normal in size. The ascending aorta is normal in size. Aortic arch is not well vis ualized. IVC is normal in size and collapses >50% with inspiration. Pericardium There is no pericardial effusion. 2D Dimensions IVSD d PLAX 0.87 cm M: 0.6-1.2 Ao Root d 2.91 cm M: 3.1 - 3.7 LVPW d PLAX 0.89 cm M: 0.6 - 1.2 Ao Asc Diam d 3.37 cm M: 2.6 - 3.4 LVID d PLAX 5.51 cm M: 4.2 - 5.8 LVDs 3.57 cm M: 2.5 - 4.0 LV EF Teichholz 63.9 % FS 35.19 % LV EDV (Teich) 147.7 mL LV ESV (Teich) 53.3 mL Stroke Vol Index (Teich) 39.52 M-Mode TAPSE 2.97 cm (M/F) >1.7 LV Volumes - Method of Disks (Thomas's) Single Plane 2D LV Volumes Biplane 2D LV Volumes LV EDV A4C 76.4 mL LV EDV BP 66.13 mL M: 62 - 150 LV ESV A4C 24.2 mL LV ESV BP 21.7 mL LVEF(%) A4C 68.3 % LVEF(%) BP 67.22 % M: 52 - 72 LV EDV A2C 56.7 mL LV EDV BP Index 27.55 mL/m2 M: 34 - 74 LV ESV A2C 19.3 mL SV BP LVEF(%) A2C 65.9 % SV Index LA Volume LA Length A4C 5.2 cm LA Length A2C 5.9 cm LA Area A4C s 11.85 cm2 LA Area A2C s 16.25 cm2 LA Vol A4C A-L 22.73 mL LA Vol A2C A-L 37.95 mL LA Vol Biplane A-L 31.2 mL LA Vol/BSA A4C A-L LA Vol/BSA A2C A-L LA Vol/BSA BP A-L 13.0 mL/m2 LA Vol A4C MOD 21.8 mL LA Vol A2C MOD 36.6 mL LA Vol BP MOD 29.9 mL RA Volume RA Area A4C 10.9 cm2 RA ESV A4C (A-L) 22.4mL RA Vol/BSA A4C A-L RA Length A4C 4.5 cm RA ESV A4C (MOD) 21.3mL LV Diastology MV E' medial 0.086 (>0.07 m/s) MV E Vmax 0.84 (0.4-1.3 m/s) MV E/E' MED 9.86 (<14) MV A Vmax 1.05 (0.4-1.3 m/s) MV E' lateral 0.105 (>0.1 m/s) E/A Ratio 0.8 MV E/E' LAT 8.02 (<14) MV E' Average 0.095 m/s MV E/E'(average) 8.84 Aortic Valve AoV Vmax 1.59 m/s LVOT Vmax 1.02 m/s AoV Peak Grad 10.1 mmHg LVOT Peak Grad 4.1 mmHg AoV Area (Vmax) 1.91 cm2 LVOT VTI 0.234 m AoV VTI 0.334 m LVOT Mean Grad 2.4 mmHg AoV Mean Juanpablo. 1.00 m/s LVOT SV 69.89 mL AoV Mean Grad 4.8 mmHg LVOT Diam s 1.95 cm AoV Area (VTI) 2.09 cm2 AV Regurg Peak Gr. 10.12 mmHg Velocity Ratio 0.64 Mitral Valve MV DT 263 (160-240 msec) Tricuspid Valve RA Pressure 3.00 mmHg TR Vmax 1.66 m/s TV S' 0.20 m/s TR Peak Grad 11.0 mmHg RVSP (TR) 14.1 mmHg
--- NOTE | 2024-07-02 14:56 | PHA.REVIEW2 ---
Pharmacy Admission Review Admission Clinical Review Admission Pharmacy Review: Opioid dependence (Acute) Cellulitis of right lower extremity (Acute) Leg swelling (Acute) Hypoxia (Acute) Pulmonary nodule (Acute) COPD exacerbation (Acute) cocoa Allergy (Severe, Verified 06/29/24 10:26) Anaphylaxis codeine Allergy (Intermediate, Verified 06/29/24 10:26) Nausea Sulfa (Sulfonamide Antibiotics) Adverse Reaction (Intermediate, Verified 06/29/24 10:26) Nausea Resuscitation Status Full Code Height 5 ft 10 in Weight 125.6 kg Pharmacy Admission Review Renal Dosing Renal Dosing: BUN 16 mg/dL (7-18) 07/02/24 09:55 Creatinine 0.9 mg/dL (0.70-1.30) 07/02/24 09:55 Medications needing adjustments: Reviewed (CrCl 119 mL/min) List of meds needing interventions: Current medications are okay Anticoagulation Anticoagulation: Hgb 14.6 g/dL (13.5-17.5) 07/02/24 09:55 Hct 43.5 % (40.0-50.0) 07/02/24 09:55 Plt Count 399 10^3/uL (130-400) 07/02/24 09:55 INR 1.1 (0.9-1.1) 06/29/24 10:24 Creatinine 0.9 mg/dL (0.70-1.30) 07/02/24 09:55 DVT Prophylaxis: Reviewed Medications: Enoxaparin (40mg daily) Relevant Labs Relevant Labs: ESR 17 mm/hr (0-20) 07/01/24 06:16 Sodium 137 mmol/L (136-145) 07/02/24 09:55 Potassium 3.6 mmol/L (3.5-5.1) 07/02/24 09:55 Chloride 96 mmol/L (98-107) L 07/02/24 09:55 Magnesium 1.8 mg/dL (1.8-2.4) 06/29/24 10:24 C-Reactive Protein 1.15 mg/dL (<or=0.5) H 07/02/24 09:55 Electrolytes, C-Reactive P, ESR: Reviewed Cardiac Review Cardiac Review: Troponin I Cancelled 06/29/24 13:19 NT-Pro-B Natriuret Pep 461 pg/mL (<300) H 06/29/24 10:24 Blood Pressure 124/90 1144 Blood Pressure 122/109 0835 BP, HR, EF%: Reviewed (HR WNL, Ox 89) List meds needing interventions: Has order for furosemide 40mg IVP BID QTc Review QTc: Reviewed (390 from 06/29/24) IV to PO Switch IV Medications: Reviewed (cefazolin and furosemide) Home Meds Home Med List reviewed: Reviewed Relevent Home Meds Not ordered & why?: Augmentin (has IV cefazolin), ciprofloxacin (has IV cefazolin), prednisone, vitamin (was ordered and then discontinued by provider), Arnuity (currently has order for Symbicort, per weekend pharmacist leaving as is for now) Current Meds Current Medication Order Review: Reviewed Pharmacy Antibiotic Review Relevant Labs: Relevant Labs 07/02/24 09:55 C-Reactive Protein 1.15 H WBC 8.29 10^3/uL (4.4-10.8) 07/02/24 09:55 Procalcitonin 0.12 ng/mL 06/29/24 11:19 Temperature 37.1 C Temperature 37.6 C Pharmacy Antibiotic Activity: C/S review and Reviewed, no change Comments: Patient is on cefazolin, day 3, for cellulitis of right lower extremity. Blood culture pending.
--- NOTE | 2024-07-02 15:06 | W.PM.PROGNOT ---
Date of Service Date of service: 07/02/24 Time of Service: 15:06 Assessment and Plan Assessment and plan (1) Cellulitis of right lower extremity: Status: Acute Assessment and plan: Elevate above the level of the heart is much as possible throughout the day. continue cefazolin 2 gm every 8 hours CRP 1.15 trend as appropriate. BC pending (2) Acute hypoxic respiratory failure: Status: Resolved Assessment and plan: No PE or pneumonia on CT angio chest. resp viral panel negative. has been weaned off oxgyen and now satting 90-92% on room air continue inhalers, pulmonary toileting US - No evidence of cholelithiasis nor dilatation of the biliary tree. 2. Splenomegaly noted. Craniocaudal length of the spleen is 14 cm. Upper normal is 13 cm. 3. There is less than optimal visualization of the abdominal aorta due to midline bowel gas as obscuring the aorta. Echo Normal left ventricular wall thickness and chamber size. Ejection fraction is 65%. Wall motion is normal Normal right ventricular size and function Both atria are normal in size The aortic valve is mildly sclerotic and trileaflet without stenosis or regurgitation There is no additional significant valvular disease (3) COPD exacerbation: Status: Acute Assessment and plan: No evidence of and acute exacerbation with no reports of increased cough or sputum production and no wheezing on physical exam Will continue symbicort and fluticasone continue duonebs and albuterol incentive spirometry (4) Pulmonary nodule: Status: Acute Assessment and plan: will need outpatient f/u (5) Leg swelling: Status: Acute Assessment and plan: elevate, compression US bilateral legs for DVT negative continue diuretics, IV furosemide BID follow kidney function and electrolytes closely monitor i&O compression right greater than left edema, US negative for DVT (6) Opioid dependence: Status: Acute Assessment and plan: Continue Suboxone home dose Discussed with Dr. Rowe Subjective Subjective Patient reports: no new complaints, pain is less, tolerating liquids well, tolerating a regular diet, voiding w/o difficulty, flatus, bowel movement and afebrile; denies diarrhea, nausea or vomiting Interval history since last seen: Patient states he is feeling better, he requests a nutrition consult so he can take better care of himself. He has no questions. Exam Narrative Exam Narrative: General Appearance: Alert and oriented. Vital signs: Oxygen saturation 95% on room air. HEENT: Within normal limits. Respiratory: Mildly diminished breath sounds and rhonchi in lungs. Skin: Warm and dry, no rash. Leg is wrapped Neurological: Normal. Objective Last Vital Signs Temp 37.1 C 07/02/24 11:44 Pulse 87 07/02/24 11:44 Resp 18 07/02/24 11:44 BP 124/90 07/02/24 11:44 Pulse Ox 89 L 07/02/24 11:44 Laboratory Results - last 24 hr 07/02/24 09:55 WBC 8.29 RBC 4.88 Hgb 14.6 Hct 43.5 MCV 89 MCH 29.9 MCHC 33.6 RDW 13.1 Plt Count 399 MPV 8.4 Immature Gran % 1.6 Neutrophils % 58.3 Lymphocytes % 28.5 Monocytes % 8.7 Eosinophils % 2.3 Basophils % 0.6 Nucleated RBC % 0.0 Absolute Neutrophils 4.84 Absolute Lymphocytes 2.36 Absolute Monocytes 0.72 Absolute Eosinophils 0.19 Absolute Basophils 0.05 Sodium 137 Potassium 3.6 Chloride 96 L Carbon Dioxide 36.7 H Anion Gap 4.3 BUN 16 Creatinine 0.9 Est GFR (CKD-EPI 2020) 99.00 Glucose 119 H Calcium 9.3 Total Bilirubin 0.4 AST 17 ALT 22 Alkaline Phosphatase 79 C-Reactive Protein 1.15 H Total Protein 7.4 Albumin 3.5 Time Spent with Patient Time Spent with Patient: 25-34 minutes Time was spent: preparing to see the patient(eg.review tests), ordering medications,tests, procedures, referring, communicating with other health personal care assistant, indepentently interpreting results, counseling the patient and care coordination
--- NOTE | 2024-07-02 16:28 | PDOC.CMPRO ---
Date of service: 07/02/24 Time of Service: 16:28 Care Management Progress Note Progress Note Text Progress Note Text: Néstor was sitting in bed, visiting with the chief diversity officer that was in his room. He was pleasant and willing to engage in conversation. Néstor has requested education surrounding his diagnosis and treatments, CM provided some educational material. Per Néstor, he would like to speak with a hydroelectric machinery mechanic helper to better understand a healthy diet, and to aid in meal planning; CM requested a consult. CM educated Néstor on advanced directives and left him with the paperwork to review. CM will revisit this tomorrow, upon pt request. Discharge Potential Discharge Needs: PCP F/U Appt Anticipated Barriers to Discharge: None Identified Patient/Family Education Needs: Review discharge instructions, discuss Ask Me Three Transportation: Facility Transport ([facility]) Plan: Anticipate Néstor will return to the [facility] via facility staff when medically ready for discharge. Pt will follow up with community providers and discharge plan of care as directed. CM will continue to follow. Social Determinants of Health Screening Social Determinants of health last assessed in clinic: 07/02/24 Will the Patient Participate in the Screening?: Yes Do you worry about having a steady place to live?: no Problems where you live: no known problems In the past 12 months, have you had to go without electric, gas, oil or water in your home?: no 1. Within the past 12 months, we worried whether our food would run out before we got money to buy more.: Don't know/refused 2. Within the past 12 months, the food we bought just didn't last and we didn't have money to get more.: Don't know/refused Has lack of transportation kept you from medical appointments or from doing things needed for daily living?: no Has anyone in your life made you feel unsafe or unsupported?: no How hard is it for you to pay for the very basics like food, housing, medical care, and heating? Would you say it is:: Not hard at all Do you want help finding or keeping work or a job?: I do not need or want help If for any reason you need help with day-to-day activities such as bathing, preparing meals, shopping, managing finances, etc., do you get the help you need?: I don?t need any help How often do you feel lonely or isolated from those around you?: Never Do you speak a language other than Kazakh at home?: No Does the patient want assistance with any of the above?: No Comments: Patient is currently incarcerated
[2024-07-02] MEDS: Enoxaparin 40 MG/0.4 ML SYR SC (16:57)
[2024-07-03] MEDS: ceFAZolin 2 GM/50 ML BAG IVPB ×2 (02:18→10:12)
[2024-07-03 06:42] LABS: Abs Immature Grans 0.14 10^3/uL (0.0-0.06); Absolute Basophil Count 0.05 10^3/uL (0.0-0.2); Absolute Eosinophil Count 0.26 10^3/uL (0.0-0.7); Absolute Lymphocyte Count 2.19 10^3/uL (1.2-3.4); Absolute Monocyte Count 0.72 10^3/uL (0.1-0.8); Absolute Neutrophil Count 4.58 10^3/uL (1.2-6.7); Basophils % 0.6 %; Eosinophils % 3.3 %; HCT 42.5 % (40.0-50.0); Immature Grans % 1.8 %; Lymphocytes % 27.6 %; MCH 29.8 pg (27.0-33.0); MCHC 32.9 % (32.0-36.0); MCV 90 fL (80-95); MPV 8.5 fL (8.0-11.0); Monocytes % 9.1 %; Neutrophils % 57.6 %; Platelet Count 384 10^3/uL (130-400); RDW-SD 42.9 fL; WBC 7.94 10^3/uL (4.4-10.8)
[2024-07-03] MEDS: Furosemide 40 MG/4 ML VIAL IVP ×2 (07:28→12:38)
[2024-07-03] MEDS: Normal Saline Flush 10 ML SYR IVP ×2 (07:29→10:13)
[2024-07-03] MEDS: Thiamine 100 MG TAB PO (07:43)
[2024-07-03] MEDS: Buprenorphine/Naloxone 8 mg/2 mg FILM 1 EACH SL (07:44)
[2024-07-03] MEDS: Buprenorphine/Naloxone 2 mg/0.5 mg FILM 2 EACH SL (07:44)
[2024-07-03] MEDS: Bacitracin 1 PACKET TP (07:45)
[2024-07-03 07:56] LABS: Anion Gap 3.9 mmol/L (3-11); BUN 15 mg/dL (7-18); CO2 36.1 mmol/L (21.0-32.0); CREATININE 0.9 mg/dL (0.70-1.30); Calcium 9.2 mg/dL (8.5-10.1); Chloride 94 mmol/L (98-107); Glucose 114 mg/dL (74-106); Magnesium 2.3 mg/dL (1.8-2.4); Potassium 3.8 mmol/L (3.5-5.1); Sodium 134 mmol/L (136-145)
[2024-07-03 08:37] VITALS: PULSE 83; RESP 14; RESP 2; RESP 9; O2SAT 97
[2024-07-03] MEDS: Albuterol/Ipratropium 3 ML UPD VIAL IH (08:37)
[2024-07-03] MEDS: Budesonide/Formoterol 160/4.5 6 GM 60 PUFF INH IH (08:42)
[2024-07-03 08:46] VITALS: PULSE 87; RESP 2; RESP 9
[2024-07-03 09:56] VITALS: BP 120/70; PULSE 87; RESP 16; TEMP 36.8; O2SAT 94
--- NOTE | 2024-07-03 10:53 | W.NUTRFU ---
Date of service: 07/03/24 Time of Service: 10:53 Nutrition Note NOTE: received nutrition consult per request of patient. 59yo male being treated for cellulits of right lower leg, exac of COPD. Hx of opiod dependence and pulmonary nodule. Patient states he still has some testing but is quite positive he has lunch cancer and wants to start getting info about how to manage his nutrition as a line of defence/treatment. Pt is currently incarcerated but states he has a little control over his menu options. I stressed general concepts like focusing on non-processed foods and plant-based diet full of colorful produce. Encouraged meeting protein needs and aim for a variety of whole produce, whole grains, nuts/seeds, legumes and generally follow no/low processed food diet. It was decided that we should work in outpatient setting to better work towards his goals (which include weight loss) once he is back in the community. Offered education handout with my contact info when he is ready to make an appt. Time Spent in Nutritional Counseling and Treatment: 10 minutes
--- NOTE | 2024-07-03 12:05 | PDOC.CMDIS ---
Date of service: 07/03/24 Time of Service: 12:05 LACE Index Scoring Tool Questions: Length of Stay (in days): 4 - 6 Was the patient admitted via the E.D.?: Yes Comorbidities: Chronic Pulmonary Disease E.D. Visits: 2 Answers: Total Score: 11 Risk of Readmission: High Risk Care Management Discharge Plan Reason for Hospitalization: Hypoxic respiratory failure, copd exacerbation Discharge Plan: N[facility]stor will [facility] the [facility] via facility staff today. Pt will follow up with facility providers and discharge plan of care as directed. He will be transported via facility transport by correctional officers, as CM coordinate with facility. Patient/Family Education Needs: Review of discharge instructions, activity, limitation, and plan of care. Discuss Ask Me Three. SDOH Health Related Social Needs: No Data to Display
--- NOTE | 2024-07-03 12:17 | DSE_ITS ---
Date of service: 07/03/24 Time of Service: 12:20 DS: Diagnosis Discharge Diagnosis (1) Cellulitis of right lower extremity: Status: Acute (2) COPD exacerbation: Status: Acute (3) Pulmonary nodule: Status: Acute (4) Leg swelling: Status: Acute (5) Opioid dependence: Status: Acute Discharge Plan Disposition Patient Disposition: [facility] Condition: Improving Discharge Details Reason For Visit: hypoxic respiratory failure, copd exacerbation Admit Date/Time: 06/29/24 14:50 Admit Provider: Monty Perez Attending Provider: Monty Perez Primary Care Provider: Unknown,Unknown Hospital Course Hospital Course: Primary Diagnosis: Hypoxic Respiratory Failure secondary to COPD Exacerbation Secondary Diagnoses: * Bilateral lower extremity cellulitis (right > left) * Chronic venous stasis * Morbid obesity (BMI 39.7) * Opioid dependence * Tobacco use disorder * History of pneumonia (treated May 2024) Clinical Course: Patient is a 59-year-old incarcerated male admitted for COPD exacerbation and hypoxia. On admission, he had bilateral lower extremity edema and erythema, more severe on the right. Cellulitis improved during hospitalization on empiric antibiotic therapy. Edema persisted, likely due to venous insufficiency and volume overload. Patient denies leg pain but reports discomfort and numbness in the right foot. He was agreeable to wound consult and education. Blood cultures pending; patient is not toxic. Echo: Normal left ventricular wall thickness and chamber size. Ejection fraction is 65%. Wall motion is normal Normal right ventricular size and function Both atria are normal in size The aortic valve is mildly sclerotic and trileaflet without stenosis or regurgitation There is no additional significant valvular disease Abdominal ultra sound: No evidence of cholelithiasis nor dilatation of the biliary tree. Splenomegaly noted. Craniocaudal length of the spleen is 14 cm. Upper normal is 13 cm. There is less than optimal visualization of the abdominal aorta due to midline bowel gas as obscuring the aorta. Chest CT: 06/26/2024: 18 millimeter suspicious nodule in the lingula. Mediastinal and left hilar adenopathy. Two other smaller nodules are seen, in the lingula and left lower lobe which are nonspecific. No evidence of pulmonary embolism. Chest CTA (PE): 06/29/2024 Stable lingular nodules, 18 and 4 millimeters - follow up needed Emphysematous changes. No acute abnormality. US Duplex Lower Extremity Veins, Bilateral: No evidence of venous thrombosis in either lower extremity. Diffuse subcutaneous edema in both calves without evidence of abscess or hematoma. Medication Adjustments: * Furosemide increased to 60 mg daily due to persistent lower extremity edema * Plan: Repeat BMP in 5 days to monitor renal function and electrolytes Wound Care Recommendations: * Start Keflex 500 mg PO QID for 10 days for cellulitis * Twice daily dressing changes: * Cleanse with wound cleanser, dwell 2 minutes, pat dry * Apply Bacitracin to open areas * Cover with non-adherent gauze (Telfa) and secure with Cosme wrap * Elevate legs when possible * Transition to Patsy Boot (or similar)with weekly dressing changes once cellulitis resolves * Nutrition education provided ? focus on increased protein intake for wound healing Additional Recommendations: * Smoking cessation encouraged * Recommend vascular follow-up due to MALIKA < 0.9 and decreased peripheral pulses * Monitor for recurrence of cellulitis or signs of deep tissue infection * Obtain a PCP Home Meds and New Rx's Prescriptions: New cephalexin 500 mg capsule 500 mg PO QID 10 Days Qty: 40 0RF Continued albuterol sulfate 90 mcg/actuation aerosol powdr breath activated 2 inh inhalation Q6H prednisone 20 mg tablet 40 mg PO ONCE Qty: 10 0RF amoxicillin-pot clavulanate 875-125 mg tablet 1 tab PO BID Qty: 10 0RF ipratropium-albuterol 0.5 mg-3 mg(2.5 mg base)/3 mL solution for nebulization 3 ml inhalation QID PRN ciprofloxacin HCl 250 mg tablet 250 mg PO BID Arnuity Ellipta 100 mcg/actuation blister with device 1 inh inhalation DAILY [id number] [id number] 27mg iron- 0.8 mg tablet 1 tab PO DAILY thiamine HCl (vitamin B1) [Vitamin B-1] 100 mg tablet 100 mg PO DAILY buprenorphine-naloxone [Suboxone] 8-2 mg film 1 film sublingual DAILY buprenorphine-naloxone [Suboxone] 2-0.5 mg film 2 film sublingual QAM Rx Instructions: place 1 strip/tab under (each) side of tongue Changed furosemide 40 mg tablet 60 mg PO DAILY Qty: 0 0RF Discharge Instructions Instructions: Cephalexin, Cellulitis (skin infection) in adults - Discharge instructions Referrals: Meagan Hurley [NURSE PRACTITIONER] - (No PCP: T-doc industrial relations director on date of discharge - CHF, cellulitis, NEW lung nodules; follow up 1-2 weeks post in patient hospitalization (or release from detention, which ever is first)) Activity:: Activity as Tolerated Equipment/Supplies:: No Equipment Needed Diet:: As Tolerated Discharge Orders Other Ambulatory Orders: Basic Metabolic Panel (Routine) Timeframe: 5 Days Facility: [facility] - Location: Laboratory Outpatient - [facility] Ordered By: Lia Roque DS: Summary Time Spent with Patient providing and/or coordinating discharge services: Greater than 30 minutes Status at Discharge Functional status at discharge: independent ambulation Overall status at discharge: patient is progressing back to baseline Mental Status: mental status grossly normal Speech and Movement: speech and movement normal Mood: congruent mood Affect: normal affect Quality:SDOH Health Related Social Needs: No Data to Display Exam Narrative Exam Narrative: General Appearance: Alert and oriented. Vital signs: Oxygen saturation 95% on room air. HEENT: Within normal limits. Respiratory: Mildly diminished breath sounds and rhonchi in lungs. Skin: Warm and dry, no rash. Legs continue to be red, are dry and less edemat ous Neurological: Normal. Psych Mental Status: mental status grossly normal Speech and Movement: speech and movement normal Mood: congruent mood Affect: normal affect DS: Data Vitals/I&O Vitals and I&O: Vital Signs Temperature 36.8 C 07/03/24 09:56 Temperature Source Temporal Artery Scan 07/03/24 09:56 Pulse 87 07/03/24 09:56 Pulse 90 06/29/24 15:00 Respiratory Rate 16 07/03/24 09:56 Respiratory Effort Non-Labored, Short of Breath 06/29/24 16:10 Respiratory Depth Normal 06/29/24 16:10 Respiratory Pattern Normal 06/29/24 16:10 Blood Pressure 120/70 07/03/24 09:56 Blood Pressure Mean 86 07/03/24 09:56 Blood Pressure Position Sitting 06/29/24 10:16 Pulse Oximetry 94 07/03/24 09:56 Oxygen Delivery Method Room Air 07/03/24 09:56 Oxygen Flow Rate 0 07/03/24 09:56 Pain Level 5 07/02/24 15:22 Comment Notifying RN on o2 07/02/24 11:44 Intake & Output 07/02/24 07/03/24 07/03/24 23:59 11:59 23:59 Intake Total 650 / 800 100 / 100 Balance 650 / 800 100 / 100 Intake: IV 50 / 200 100 / 100 Oral 600 / 600 Data Completed and Pending Labs on day of discharge: Labs from last 24 hours 07/03/24 06:23: WBC 7.94, RBC 4.70, Hgb 14.0, Hct 42.5, MCV 90, MCH 29.8, MCHC 32.9, RDW 13.0, Plt Count 384, MPV 8.5, Immature Gran % 1.8, Neutrophils % 57.6, Lymphocytes % 27.6, Monocytes % 9.1, Eosinophils % 3.3, Basophils % 0.6, Nucleated RBC % 0.0, Absolute Neutrophils 4.58, Absolute Lymphocytes 2.19, Absolute Monocytes 0.72, Absolute Eosinophils 0.26, Absolute Basophils 0.05, Sodium 134 L, Potassium 3.8, Chloride 94 L, Carbon Dioxide 36.1 H, Anion Gap 3.9, BUN 15, Creatinine 0.9, Est GFR (CKD-EPI 2020) 99.00, Glucose 114 H, Calcium 9.2, Magnesium 2.3 07/02/24 16:35 Blood Blood Culture - Pending 07/02/24 16:35 Blood Blood Culture - Pending Preliminary micro results at discharge 07/02/24 16:35 Blood Blood Culture - Pending 07/02/24 16:35 Blood Blood Culture - Pending [facility] All Active Problems (Updated 07/03/24 @ 14:45 by Lia Roque NP) Congestive heart failure (Chronic) Opioid dependence (Acute) Cellulitis of right lower extremity (Acute) Leg swelling (Acute) Hypoxia (Acute) Pulmonary nodule (Acute) COPD exacerbation (Acute) Pneumonia (Acute) Social History Smoking/Tobacco Use Status: Former Tobacco Use Tobacco: How many years used: 45 Smoking risk assessment performed?: Yes Alcohol Intake: former Drug use: Current Sobriety Substance use type: former substance user, marijuana, crack/cocaine, heroin, amphetamines, sedatives, opiates, painkillers, methamphetamine and prescription drug Details: has been in corrections for 30 days Housing: other Do you feel safe at home: Yes Do you feel safe in your relationship?: No Time Spent with Patient Time Spent with Patient: 45-69 minutes Time was spent: preparing to see the patient(eg.review tests), ordering medications,tests, procedures, referring, communicating with other health school childcare attendant, indepentently interpreting results, counseling the patient and care coordination
== END 2024-07-03 15:51 ==
LOC: ER 14:40 → MS 15:49
PROVIDERS: Nurse Practitioner Acute Care; Admitting Provider Hospitalist; Emergency Provider Registered Nurse Emergency; Responsible Provider Nurse Practitioner Family; Visit Provider Hospitalist
DX: J43.9 Emphysema, unspecified (principal); J96.01 Acute respiratory failure with hypoxia; L03.115 Cellulitis of right lower limb; F11.20 Opioid dependence, uncomplicated; R60.0 Localized edema; I50.9 Heart failure, unspecified; F19.91 Other psychoactive substance use, unspecified, in remission; Z79.899 Other long term (current) drug therapy; R16.1 Splenomegaly, not elsewhere classified; I87.2 Venous insufficiency (chronic) (peripheral); L97.228 Non-pressure chronic ulcer of left calf with other specified severity; L97.218 Non-pressure chronic ulcer of right calf with other specified severity; E66.01 Morbid (severe) obesity due to excess calories; Z68.39 Body mass index [BMI] 39.0-39.9, adult; F17.210 Nicotine dependence, cigarettes, uncomplicated; I35.8 Other nonrheumatic aortic valve disorders; R59.0 Localized enlarged lymph nodes; R91.8 Other nonspecific abnormal finding of lung field
CPT/HCPCS: 00123; 36415; 71275; 80048; 80053; 82805; 84145; 85652; 87040; 87637; 93005; 93308; 94150; 94640; 94761; 96365; 96366; 96372; 96374; 96375; 96376; 99285; J1650; 71045; 76700; 83735; 83880; 84484; 85025; 85379; 85610; 85730; 86140; 93010; 93306; 93970; 94664; 94760; 99223; 99232; 99233; 99239; G0378; J0690; J1938; J2919; J3490; J7620

== ENCOUNTER 2024-07-03 17:30 | Observation (INO) | payer OTHER, SELFPAY ==
[2024-07-03] VITALS (18 sets, daily range): BP systolic 108–188; BP diastolic 58–109; PULSE 68–99; RESP 7–23; TEMP 35.8–36.8; O2SAT 79–98
--- NOTE | 2024-07-03 18:01 | HPE_ITS ---
Date of service: 07/03/24 Time of Service: 18:01 Assessment and Plan Assessment and plan (1) Chronic respiratory failure with hypoxia: Status: Chronic Assessment and plan: No PE or pneumonia on CT angio chest. resp viral panel negative. Satting 94% on room air no increased wob continue inhalers, pulmonary toileting, nebulizers, prednisone US - No evidence of cholelithiasis nor dilatation of the biliary tree. 2. Splenomegaly noted. Craniocaudal length of the spleen is 14 cm. Upper normal is 13 cm. 3. There is less than optimal visualization of the abdominal aorta due to midline bowel gas as obscuring the aorta. Echo Normal left ventricular wall thickness and chamber size. Ejection fraction is 65%. Wall motion is normal Normal right ventricular size and function Both atria are normal in size The aortic valve is mildly sclerotic and trileaflet without stenosis or regurgitation There is no additional significant valvular disease If half-way now unable to give nebs (patient reports he has been getting nebs for one month at the half-way) recommend he is transferred to a facility that is capable of caring for his chronic illness. (2) Cellulitis of right lower extremity: Status: Acute Assessment and plan: Elevate above the level of the heart is much as possible throughout the day. CRP 1.15 trend as appropriate. BC neg at 24h continue keflex (3) Pulmonary nodule: Status: Acute Assessment and plan: will need outpatient f/u with PCP with recommendation for referral to pulmonology (4) Leg swelling: Status: Acute Assessment and plan: elevate, compression US bilateral legs for DVT negative continue diuretics, oral furosemide 60 mg daily follow kidney function and electrolytes closely monitor i&O Light compression right greater than left edema, US negative for DVT (5) Opioid dependence: Status: Acute Assessment and plan: Continue Suboxone home dose Discussed with Dr. Rowe History of Present Illness Narrative: Patient discharged today after unoffical walk test by RT, patient was 94% SPO2 on room air (see RT note) Patient returns from half-way with decreased SPO2; per the ED provider, the half-way advised they provided him with nebs and oxygen however they do not have an infirmary and they will have to transfer him to another half-way for him to get oxygen and nebulizers. Patient is placed on observation status until the half-way has personnel that can transfer him w EMS. No labs or xrays done in the ED - Hospitalist orders: VBG pretty much unchanged from last CXR unchanged: There is an 18 x 17 mm noncalcified nodule in the superior lingular segment of the left lung, corresponding to what is seen on recent CT scan. This noncalcified nodule requires close follow-up to rule out neoplasm. I did request t doc - no PCP assigned for follow up up and get pulmonolgy consult. Methylprednisolone 125 mg IV Patient awake, alert sitting on the bed, no oxygen, SPO2 95%, lungs distant but clear, no increased WOB, no wheezing, speaking in full sentences, laughing. Patient states he does not know why he was put in an ambulance and returned to hospital as he has been getting nebulizers at the half-way for the last month. ED provider reported the half-way is unable to provide that care. Recommendation for patient to be transferred to a half-way that can offer that service. His lungs are not going to improve and he is at baseline with no oxygen requirement. From Discharge Summary: Clinical Course: Patient is a 59-year-old incarcerated male admitted for COPD exacerbation and hypoxia. On admission, he had bilateral lower extremity edema and erythema, more severe on the right. Cellulitis improved during hospitalization on empiric antibiotic therapy. Edema persisted, likely due to venous insufficiency and volume overload. Patient denies leg pain but reports discomfort and numbness in the right foot. He was agreeable to wound consult and education. Blood cultures pending; patient is not toxic. Echo: Normal left ventricular wall thickness and chamber size. Ejection fraction is 65%. Wall motion is normal Normal right ventricular size and function Both atria are normal in size The aortic valve is mildly sclerotic and trileaflet without stenosis or regurgitation There is no additional significant valvular disease Abdominal ultra sound: No evidence of cholelithiasis nor dilatation of the biliary tree. Splenomegaly noted. Craniocaudal length of the spleen is 14 cm. Upper normal is 13 cm. There is less than optimal visualization of the abdominal aorta due to midline bowel gas as obscuring the aorta. Chest CT: 06/26/2024: 18 millimeter suspicious nodule in the lingula. Mediastinal and left hilar adenopathy. Two other smaller nodules are seen, in the lingula and left lower lobe which are nonspecific. No evidence of pulmonary embolism. Chest CTA (PE): 06/29/2024 Stable lingular nodules, 18 and 4 millimeters - follow up needed Emphysematous changes. No acute abnormality. US Duplex Lower Extremity Veins, Bilateral: No evidence of venous thrombosis in either lower extremity. Diffuse subcutaneous edema in both calves without evidence of abscess or hematoma. Medication Adjustments: * Furosemide increased to 60 mg daily due to persistent lower extremity edema * Plan: Repeat BMP in 5 days to monitor renal function and electrolytes Wound Care Recommendations: * Start Keflex 500 mg PO QID for 10 days for cellulitis * Twice daily dressing changes: * Cleanse with wound cleanser, dwell 2 minutes, pat dry * Apply Bacitracin to open areas * Cover with non-adherent gauze (Telfa) and secure with Cosme wrap * Elevate legs when possible * Transition to Patsy Boot (or similar)with weekly dressing changes once cellulitis resolves * Nutrition education provided ? focus on increased protein intake for wound healing Additional Recommendations: * Smoking cessation encouraged * Recommend vascular follow-up due to MALIKA < 0.9 and decreased peripheral pulses * Monitor for recurrence of cellulitis or signs of deep tissue infection * Obtain a PCP Review of Systems All systems reviewed & are unremarkable except as noted in HPI and below PFSH All Active Problems (Updated 07/03/24 @ 19:33 by Lia Roque NP) Chronic respiratory failure with hypoxia (Chronic) Congestive heart failure (Chronic) Opioid dependence (Acute) Cellulitis of right lower extremity (Acute) Leg swelling (Acute) Hypoxia (Acute) Pulmonary nodule (Acute) COPD exacerbation (Acute) Pneumonia (Acute) Social History Smoking/Tobacco Use Status: Former Tobacco Use Tobacco: How many years used: 45 Smoking risk assessment performed?: Yes Alcohol Intake: former Drug use: Current Sobriety Substance use type: former substance user, marijuana, crack/cocaine, heroin, amphetamines, sedatives, opiates, painkillers, methamphetamine and prescription drug Details: has been in corrections for 30 days Housing: other Do you feel safe at home: Yes Do you feel safe in your relationship?: No Meds Allergies and Home Medications Allergies Allergy/AdvReac Type Severity Reaction Status Date / Time cocoa Allergy Severe Anaphylaxis Verified 07/03/24 17:35 codeine Allergy Intermediate Nausea Verified 07/03/24 17:35 Sulfa (Sulfonamide AdvReac Intermediate Nausea Verified 07/03/24 17:35 Antibiotics) Home Medications ?Medication ?Instructions ?Recorded ?Confirmed ?Type albuterol sulfate 90 mcg/actuation 2 inh inhalation Q6H 06/04/24 07/03/24 History breath activated powder inhaler amoxicillin 875 mg-potassium 1 tab PO BID #10 tabs 06/04/24 07/03/24 Rx clavulanate 125 mg tablet prednisone 20 mg tablet 40 mg (2 x 20 mg) PO ONCE #10 tabs 06/04/24 07/03/24 Rx buprenorphine 2 mg-naloxone 0.5 mg 2 film sublingual QAM 06/29/24 07/03/24 History sublingual film (Suboxone) buprenorphine 8 mg-naloxone 2 mg 1 film sublingual DAILY 06/29/24 07/03/24 History sublingual film (Suboxone) ciprofloxacin HCl 250 mg tablet 250 mg PO BID 06/29/24 07/03/24 History fluticasone furoate 100 1 inh inhalation DAILY 06/29/24 07/03/24 History mcg/actuation blister powder for inhalation (Arnuity Ellipta) ipratropium 0.5 mg-albuterol 3 mg 3 ml inhalation QID PRN 06/29/24 07/03/24 History (2.5 mg base)/3 mL nebulization soln vit 137-ferrous fumarate 1 tab PO DAILY 06/29/24 07/03/24 History 27 mg iron-folic acid 0.8 mg tablet thiamine HCl (vitamin B1) 100 mg 100 mg PO DAILY 06/29/24 07/03/24 History tablet (Vitamin B-1) cephalexin 500 mg capsule 500 mg PO QID 10 days #40 caps 07/03/24 07/03/24 Rx furosemide 40 mg tablet 60 mg (1.5 x 40 mg) PO DAILY #0 07/03/24 07/03/24 Rx tabs Exam Narrative Exam Narrative: General Appearance: Alert and oriented. Vital signs: Oxygen saturation 95% on room air. HEENT: Within normal limits. Respiratory: Mildly diminished breath sounds and no rhonchi or wheezing at this time (he did receive a nebulizer in the ED) Skin: Warm and dry, no rash. Legs wrapped with cosme bandages. Neurological: Normal. Psych Mental Status: mental status grossly normal Speech and Movement: speech and movement normal Mood: congruent mood Affect: normal affect Results Last Vital Signs Temp 36.8 C 07/03/24 17:31 Pulse 83 07/03/24 17:45 Resp 14 07/03/24 17:45 BP 156/58 H 07/03/24 17:45 Pulse Ox 94 07/03/24 17:45 Time Spent Time spent with Patient: 40-54 minutes Time was spent: preparing to see the patient(eg.review tests), obtaining and/or reviewing separately otained hiistory, ordering medications,tests, procedures, referring, communicating with other health care tech, indepentently interpreting results, counseling the patient and care coordination
--- NOTE | 2024-07-03 18:35 | W.PC.ACHO ---
Registration Status: Primary Language: Preferred Language: ED Information & Data Chief Complaint SOB 07/03/24 17:49 Chief Complaint SOB 07/03/24 17:31 Triage Note spo2 70-80% with ambulation, 07/03/24 17:31 D/C from this facility m/s today HX COPD Most Recent Vital Signs Temperature 36.8 C 07/03/24 17:31 Pulse 83 07/03/24 17:45 Pulse 84 07/03/24 17:45 Respiratory Rate 14 07/03/24 17:45 Blood Pressure 156/58 H 07/03/24 17:45 Blood Pressure Mean 96 07/03/24 17:45 Pulse Oximetry 94 07/03/24 17:45 Oxygen Delivery Method Room Air 07/03/24 17:44 Oxygen Flow Rate 0 07/03/24 17:44 Pain Level 0 07/03/24 17:49 Comment RA 07/03/24 17:45 Allergies cocoa Allergy (Severe, Verified 07/03/24 17:35) Anaphylaxis codeine Allergy (Intermediate, Verified 07/03/24 17:35) Nausea Sulfa (Sulfonamide Antibiotics) Adverse Reaction (Intermediate, Verified 07/03/24 17:35) Nausea Precautions Isolation Standard precaution 07/03/24 17:49 IV IV Catheter Type [Left Peripheral IV Antecubital] IV Catheter Gauge [Left 20 Antecubital] Diet Orders Category Date Time Status Heart Healthy Eating [DIET] Nutrition 07/04/24 Breakfast Ordered Diagnostics 07/03/24 07/03/24 Range/Units Unknown 17:58 VBG pH Pending Cancelled VBG pCO2 Pending Cancelled VBG pO2 Pending Cancelled VBG HCO3 Pending Cancelled VBG Total CO2 Pending Cancelled VBG O2 Saturation Pending Cancelled VBG Base Excess Pending Cancelled Intake and Output - 24 Hour Total 07/03/24 17:22 thru 07/03/24 17:31 Weight 124 kg Falls Risk Assessment History of Falls No History 07/03/24 17:49 Contributing Factors No Factors 07/03/24 17:49 Ambulatory Aids Independent 07/03/24 17:49 Tubes/Lines None 07/03/24 17:49 Gait Evaluation No gait disturbance 07/03/24 17:49 Cognition No cognitive impairment 07/03/24 17:49 Fall Total Score 0 07/03/24 17:49 Level of Risk Standard/Low Risk 07/03/24 17:49 v v v v v v v v v Sending and/or Receiving Nurses: Please use comment section below to note any information pertinent to the patient hand-off not included above. Information / Comments: Patient readmitted due to SOB and Low O2 once walking around at [facility]. Reported that patient O2 dropped to the low 70% and patient required supplemental O2. while in the ER patient remained on Room air, Oxygen 88% and Above, pt has hx of COPD, Pt dipped to 86% walking but bounced back up to the 90%s without sob or fatigue. BLE edema, 20G RAC, No labs drawn in ER.. Report received from: Gloria GUERRERO in ER at 1830
[2024-07-03 18:47] LABS: BE (Venous) 14 mmol/L (-2-3); HCO3 (Venous) 38 mmol/L (23-28); O2 Sat (Venous) 34 %; TCO2 (Venous) 34 mmol/L (24-29); pCO2 (Venous) 54 mmHg (41-51); pH (Venous) 7.45 (7.31-7.41); pO2 (Venous) 22 mmHg
--- NOTE | 2024-07-03 18:59 | DI.RAD_ITS ---
Exam(s) XR CHEST 2V PA LATERAL EXAM: XR CHEST 2V PA LATERAL CLINICAL HISTORY: Short of breath. TECHNIQUE: 2D digital imaging was performed. COMPARISON: CT CT CHEST W from 06/26/2024 FINDINGS: 2 views: Heart size is normal. The mediastinum is not widened. Noncalcified nodular density in the mid left lung is again noted, measuring approximately 1.8 x 1.7 c m and corresponding to the nodule seen in the lingular segment the left lung on recent CT scan of . No other nodules identified on plain film and there are no pleural effusions. There are sl ightly increased markings in the left lower lobe. No pleural effusions. x IMPRESSION: There is an 18 x 17 mm noncalcified nodule in the superior lingular segment of the left lung, corresp onding to what is seen on recent CT scan. This noncalcified nodule requires close follow-up to rule out neoplasm. DATA REPOSITORY: RADIATION DOSE DELIVERED:
[2024-07-03] MEDS: methylPREDNISolone SUCC 125 MG VIAL IVP (19:04)
[2024-07-03] MEDS: Albuterol/Ipratropium 3 ML UPD VIAL UPD ×2 (19:04→21:58)
[2024-07-03] MEDS: Enoxaparin 40 MG/0.4 ML SYR SC (19:05)
[2024-07-03] MEDS: Ciprofloxacin 250 MG TAB PO (20:01)
[2024-07-03] MEDS: Cephalexin 500 MG CAP PO (20:02)
[2024-07-03] MEDS: Normal Saline Flush 10 ML SYR IVP (20:02)
--- NOTE | 2024-07-03 20:18 | W.ED.GENAD ---
Discharge Plan Disposition Patient Disposition: Admit to [facility] Discharge Details Chief Complaint: SOB Clinical Impression: Chronic respiratory failure with hypoxia Admit Date/Time: 07/03/24 18:00 Admit Provider: Naveen Rowe Attending Provider: Naveen Rowe Primary Care Provider: Unknown,Unknown ED Provider: Leanna Navarro [facility] General Date/Time Provider Initiated Documentation: 07/03/24 17:47. Limitations to Documentation: no limitations. Information obtained by: patient, police, RN/MD, EMS and old records reviewed. HPI Narrative: D9-year-old gentleman with past medical history of CHF, COPD presents via EMS from half-way facility. Patient was discharged from this hospital about 1 hour prior. His admission had been treating his CHF exacerbation. On arrival to the half-way, the half-way nurse warehouse distribution manager noted that the patient was tachypneic and hypoxic with an increased work of breathing. His oxygen saturation was in the 70s. She stated that she used an incentive spirometer and let him rest. She states that he does have a history of exertional dyspnea and hypoxia and she anticipated that his oxygen saturation might come up. She states that he started to feel little bit better and then went back to his cell. She states shortly after that he returned to her, and by the time he got down to her room, he was severely dyspneic, short of breath, oxygen saturations were low and would not improve with any treatments that she had available which were rest and albuterol. She states that she placed him on 2 L of oxygen. She states that she contacted the hospital since he was just discharged and spoke with the charge nurse on the [facility] floor. The charge nurse said that the patient had not been experience significant, hypoxia but no walk test had been performed prior to his discharge. The half-way nurse then contacted 911. EMS reports on their arrival, the patient did appear to be dyspneic and they noted that his oxygen saturation was 90 on 2 L, so they then increased to 3 L and transported to this facility. No other additional treatments were given en route. On arrival, the patient was noted to be 93% on 3 L. The patient does report that he had some improvement in his symptoms. Related Data Home Medications ?Medication ?Instructions ?Recorded ?Confirmed albuterol sulfate 90 mcg/actuation 2 inh inhalation Q6H 06/04/24 07/03/24 breath activated powder inhaler amoxicillin 875 mg-potassium 1 tab PO BID #10 tabs 06/04/24 07/03/24 clavulanate 125 mg tablet prednisone 20 mg tablet 40 mg (2 x 20 mg) PO ONCE #10 tabs 06/04/24 07/03/24 buprenorphine 2 mg-naloxone 0.5 mg 2 film sublingual QAM 06/29/24 07/03/24 sublingual film (Suboxone) buprenorphine 8 mg-naloxone 2 mg 1 film sublingual DAILY 06/29/24 07/03/24 sublingual film (Suboxone) ciprofloxacin HCl 250 mg tablet 250 mg PO BID 06/29/24 07/03/24 fluticasone furoate 100 1 inh inhalation DAILY 06/29/24 07/03/24 mcg/actuation blister powder for inhalation (Arnuity Ellipta) ipratropium 0.5 mg-albuterol 3 mg 3 ml inhalation QID PRN 06/29/24 07/03/24 (2.5 mg base)/3 mL nebulization soln vit 137-ferrous fumarate 1 tab PO DAILY 06/29/24 07/03/24 27 mg iron-folic acid 0.8 mg tablet thiamine HCl (vitamin B1) 100 mg 100 mg PO DAILY 06/29/24 07/03/24 tablet (Vitamin B-1) cephalexin 500 mg capsule 500 mg PO QID 10 days #40 caps 07/03/24 07/03/24 furosemide 40 mg tablet 60 mg (1.5 x 40 mg) PO DAILY #0 07/03/24 07/03/24 tabs Previous Rx's ?Medication ?Instructions ?Recorded amoxicillin 875 mg-potassium 1 tab PO BID #10 tabs 06/04/24 clavulanate 125 mg tablet prednisone 20 mg tablet 40 mg (2 x 20 mg) PO ONCE #10 tabs 06/04/24 cephalexin 500 mg capsule 500 mg PO QID 10 days #40 caps 07/03/24 furosemide 40 mg tablet 60 mg (1.5 x 40 mg) PO DAILY #0 07/03/24 tabs Allergies Allergy/AdvReac Type Severity Reaction Status Date / Time cocoa Allergy Severe Anaphylaxis Verified 07/03/24 17:35 codeine Allergy Intermediate Nausea Verified 07/03/24 17:35 Sulfa (Sulfonamide AdvReac Intermediate Nausea Verified 07/03/24 17:35 Antibiotics) General Stated Complaint: SOB CARLOS: 3 Exam Narrative Exam Narrative: Review of Systems: All systems reviewed & are unremarkable except as noted in HPI and below Well-developed NCAT RRR 93% on 3 L, oxygen turned off and oxygen saturations stayed around 94%. Patient reports that he feels like he cannot take a deep breath, denies chest pain Nondistended abdomen Lower extremity edema Course Vital Signs Vital signs: Vital Signs Temperature 36.8 C 07/03/24 17:31 Pulse 85 07/03/24 17:31 Respiratory Rate 16 07/03/24 17:31 Blood Pressure 132/60 07/03/24 17:31 Pulse Oximetry 98 07/03/24 17:31 Temperature 35.8 C L 07/03/24 18:43 Temperature Source Temporal Artery Scan 07/03/24 18:43 Pulse 87 07/03/24 18:43 Pulse 87 07/03/24 18:31 Respiratory Rate 16 07/03/24 18:43 Blood Pressure 111/90 07/03/24 18:43 Blood Pressure Mean 97 07/03/24 18:43 Pulse Oximetry 92 07/03/24 18:43 Oxygen Delivery Method Room Air 07/03/24 18:43 Oxygen Flow Rate 0 07/03/24 18:43 Pain Level 0 07/03/24 18:43 Comment RA 07/03/24 17:45 Lab/Test Results Lab/Test Results: Laboratory Tests Range/Units 07/03/24 17:58 VBG pH Cancelled VBG pCO2 Cancelled VBG pO2 Cancelled VBG HCO3 Cancelled VBG Total CO2 Cancelled VBG O2 Saturation Cancelled VBG Base Excess Cancelled Medical Decision Making Emergent evaluation of hypoxia. The patient was severely hypoxic at the half-way facility and on EMS arrival. His symptoms have improved with oxygen therapy. The patient denies any chest pain. He reports that his symptoms significantly worsen when he walks around. Therefore an ambulatory trial was performed in the emergency department. The patient took a very brief walk and desaturated to 79%. he was noted to have increased work of breathing dyspnea and inability to speak in complete sentences. Back in his room, he was monitored for some time to see if he would return to baseline. He got up only to 89% and was placed on oxygen. Discussed with respiratory therapy who has been caring for the patient on the floor for the last 3 days. She states that he was not having significant hypoxia, but also was not having any moving and did not get out of bed during that time. My suspicion is that the patient has significant exertional dyspnea and hypoxia and would likely benefit from oxygen therapy. In discussion with the nurse warehouse distribution manager at the half-way, [facility] to [facility] long-term for this patient. She states that patients with this complexity of medical needs would need to go to a different facility. There would need to be paperwork completed to allow for that transfer but she does feel like his medical needs have exceeded their capacity of their facility. I discussed with hospital medicine and the patient will be readmitted to their service for continued management of his acute hypoxic respiratory failure. Quality:SDOH Health Related Social Needs: Health related social needs inadequate housing (Z59.1) Health related social needs details Patient is incarcerated. Two officer present in patient's room. , [facility] All Active Problems (Updated 07/03/24 @ 21:17 by Leanna Navarro MD) Chronic respiratory failure with hypoxia (Chronic) Congestive heart failure (Chronic) Opioid dependence (Acute) Cellulitis of right lower extremity (Acute) Leg swelling (Acute) Hypoxia (Acute) Pulmonary nodule (Acute) COPD exacerbation (Acute) Pneumonia (Acute) Social History Smoking/Tobacco Use Status: Former Tobacco Use Tobacco: How many years used: 45 Smoking risk assessment performed?: Yes Alcohol Intake: former Drug use: Current Sobriety Substance use type: former substance user, marijuana, crack/cocaine, heroin, amphetamines, sedatives, opiates, painkillers, methamphetamine and prescription drug Details: has been in corrections for 30 days Housing: other Do you feel safe at home: Yes Do you feel safe in your relationship?: No
[2024-07-03] MEDS: Budesonide/Formoterol 160/4.5 6 GM 60 PUFF INH IH (20:23)
[2024-07-04] VITALS (7 sets, daily range): BP systolic 116–130; BP diastolic 70–78; PULSE 79–103; RESP 2–18; TEMP 36–36.2; O2SAT 84–95
[2024-07-04] MEDS: Albuterol/Ipratropium 3 ML UPD VIAL UPD ×2 (03:54→10:04)
[2024-07-04 06:44] LABS: Abs Immature Grans 0.11 10^3/uL (0.0-0.06); Absolute Basophil Count 0.01 10^3/uL (0.0-0.2); Absolute Eosinophil Count 0.06 10^3/uL (0.0-0.7); Absolute Monocyte Count 0.08 10^3/uL (0.1-0.8); Absolute Neutrophil Count 5.77 10^3/uL (1.2-6.7); Basophils % 0.2 %; Eosinophils % 0.9 %; HCT 42.4 % (40.0-50.0); HGB 14.3 g/dL (13.5-17.5); Immature Grans % 1.7 %; Lymphocytes % 7.7 %; MCH 29.7 pg (27.0-33.0); MCHC 33.7 % (32.0-36.0); MCV 88 fL (80-95); MPV 8.5 fL (8.0-11.0); Monocytes % 1.2 %; Neutrophils % 88.3 %; Platelet Count 383 10^3/uL (130-400); RBC 4.82 10^6/uL (4.36-5.78); RDW 12.5 % (11.8-14.1); RDW-SD 40.5 fL; WBC 6.53 10^3/uL (4.4-10.8)
[2024-07-04 07:05] LABS: ALT 19 U/L (16-63); AST 21 U/L (15-37); Albumin 3.4 g/dL (3.4-5.0); Alkaline Phosphatase 79 U/L (46-116); Anion Gap 6.4 mmol/L (3-11); BUN 17 mg/dL (7-18); Bilirubin, Total 0.4 mg/dL (0.2-1.0); C-Reactive Protein 1.29 mg/dL (<or=0.5); CO2 32.6 mmol/L (21.0-32.0); CREATININE 0.9 mg/dL (0.70-1.30); Calcium 9.5 mg/dL (8.5-10.1); Chloride 96 mmol/L (98-107); Glucose 175 mg/dL (74-106); Magnesium 2.3 mg/dL (1.8-2.4); Potassium 3.6 mmol/L (3.5-5.1); Sodium 135 mmol/L (136-145); Total Protein 7.7 g/dL (6.4-8.2)
[2024-07-04] MEDS: Budesonide/Formoterol 160/4.5 6 GM 60 PUFF INH IH (08:11)
[2024-07-04] MEDS: Buprenorphine/Naloxone 8 mg/2 mg FILM 1 EACH SL (08:28)
[2024-07-04] MEDS: Buprenorphine/Naloxone 2 mg/0.5 mg FILM 1 EACH SL (08:29)
[2024-07-04] MEDS: Cephalexin 500 MG CAP PO ×2 (08:29→11:39)
[2024-07-04] MEDS: Normal Saline Flush 10 ML SYR IVP (08:30)
[2024-07-04] MEDS: Furosemide 20 MG TAB 60 MG PO (08:30)
[2024-07-04] MEDS: predniSONE 20 MG TAB 40 MG PO (08:30)
[2024-07-04] MEDS: Prenatal Multivitamin w/CA,FE TAB 1 TAB PO (08:30)
[2024-07-04] MEDS: Thiamine 100 MG TAB PO (08:30)
[2024-07-04] MEDS: Ciprofloxacin 250 MG TAB PO (08:30)
--- NOTE | 2024-07-04 08:43 | INITIAL_ITS ---
Date of service: 07/04/24 Time of Service: 08:43 Care Management Initial Assmt Initial Assessment Reason for Hospitalization: Chronic hypoxia Functional Status/Living Situation Patient Presentation: Néstor was discharged back to the [facility] yesterday after a hospital stay for hypoxic respiratory failure, copd exacerbation, and treated for cellulites of the lower extremities. He was discharged for about an hour prior to returning to the ED. Upon arrival to [facility], he was tachypneic and hypoxic and was readmitted to the hospital. N[facility]stor will likely return to the [facility] today. A walk test will be done today, the [facility] will provide O2 and they will assess him there and determine what level of care he will need to be. Town of Residence: [facility] Resides with: Other ([facility] ) Significant Other/Family: Local ([place]) Employment Status: Unemployed Instrumental Activities of Daily Living (ADLs): Independent Medications Medication Management: No Issues/Barriers identified Physical Functioning/Mobility Assistive Device: none identified Advance Directives Advance Directives: Do you have an Advance Directive: AD On File at [facility]: N 06/29/24 10:21 Date Asked 07/03/24 07/03/24 18:38 AD Date Reviewed COLST On File at [facility] COLST Date Scanned Code Status Resuscitation Status Full Code Portal Pt does not currently have a portal and education provided: Yes Insurance Coverage/Financial Issues Insurance: [facility] - [id number] Care Team Visit Care Team Role Provider Type Mercedez Victor APRN MD [facility] STAFF PHYSICIAN Unknown Unknown Primary Care Provider STAFF PHYSICIAN Leanna Navarro MD Emergency Provider [facility] STAFF PHYSICIAN Naveen Rowe MD Admit Provider [facility] STAFF PHYSICIAN Attending Provider Discharge Potential Discharge Needs: PCP F/U Appt Anticipated Barriers to Discharge: None Identified Patient/Family Education Needs: Review discharge instructions, discuss Ask Me Three Transportation: Facility Transport ([facility]pt [facility]rections) Plan: Anticipate Néstor will return to the [facility] via facility staff when medically ready for discharge, with new O2. Pt will follow up with facility providers and discharge plan of care as directed. CM will continue to follow. Social Determinants of Health Screening Social Determinants of health last assessed in clinic: 07/03/24 Will the Patient Participate in the Screening?: Declined to provide Do you worry about having a steady place to live?: choose not to answer Problems where you live: other Comments: Patient is incarcerated, accompanied with 2 officers in his room. Health Related Social Needs Health related social needs: inadequate housing (Z59.1) Health related social needs details: Patient is incarcerated. Two officer present in patient's room. [facility] All Active Problems (Updated 07/04/24 @ 00:03 by VU GUAJARDO) Chronic respiratory failure with hypoxia (Chronic) Congestive heart failure (Chronic) Cellulitis of right lower extremity (Acute) Leg swelling (Acute) Pulmonary nodule (Acute) COPD exacerbation (Acute) Pneumonia (Acute) Medical History (Updated 07/04/24 @ 00:03 by VU GUAJARDO) Opioid dependence Social History Smoking/Tobacco Use Status: Former Tobacco Use Tobacco: How many years used: 45 Smoking risk assessment performed?: Yes Alcohol Intake: former Drug use: Current Sobriety Substance use type: former substance user, marijuana, crack/cocaine, heroin, amphetamines, sedatives, opiates, painkillers, methamphetamine and prescription drug Details: has been in corrections for 30 days Housing: other Do you feel safe at home: Yes Do you feel safe in your relationship?: No Readmission Within the Past 30 Days Yes or No: Yes Date of First Admission Date of 1st Admission: 06/29/24 Date of this Admission Date of Admission: 07/03/24 This admission was: Through ED Office Visit Since 1st Admission Have you seen your PCP in the office since discharge?: No Date of PCP Appointment: Faciltiy provider Had an appointment Been Scheduled?: No Describe barriers for scheduling or getting an appointment: Incarcerated Speicalist Appointments Have you seen any other specialist since your 1st Admission?: No I. Interview patient and/or Family Difficulty reaching your doctor or getting an office appt?: No Have you had trouble purchasing/ or taking medication?: No Describe barriers fpr purchasing or taking medication: none How do you take your medications and set up your pills?: nurses in [facility] Have you had trouble with getting meals at home?: No Describe your typical meals since you have been home: Incarcerated Were services received that you thought were set up on disch: No What services were received?: none needed What were the barriers for not receiving services?: none needed Reason there were no orders at discharge: none needed Did you call your physician beore you came to the ED?: No Did your physician tell you to come in?: Yes (Incarcerated ) How do you think you became sick enough to come back?: walking too far If the patient had a VNA ordered Did the patient have a VNA order?: No If the patient came from Ext. Facility Call the Facility to discuss the patient's admission: Incarcerated Ask the Care Team Members: What do you think caused the patient to be readmitted: When discharged his O2 was saturating in the 90's, when he arrived at the facility he was found to be hypoxic and he was sent back. ED visits How many ED visits in the past 12 months: 3 Assessment for Readmission Summary of readmission circumstances, based upon interviews: Chronic hypoxia
--- NOTE | 2024-07-04 09:24 | PGE_ITS ---
Date of Service Date of service: 07/04/24 Time of Service: 09:24 Assessment and Plan Assessment and plan (1) Chronic respiratory failure with hypoxia: Status: Chronic Assessment and plan: No PE or pneumonia on CT angio chest. resp viral panel negative. Satting 94% on room air no increased wob continue inhalers, pulmonary toileting, nebulizers, prednisone US - No evidence of cholelithiasis nor dilatation of the biliary tree. 2. Splenomegaly noted. Craniocaudal length of the spleen is 14 cm. Upper normal is 13 cm. 3. There is less than optimal visualization of the abdominal aorta due to midline bowel gas as obscuring the aorta. Echo Normal left ventricular wall thickness and chamber size. Ejection fraction is 65%. Wall motion is normal Normal right ventricular size and function Both atria are normal in size The aortic valve is mildly sclerotic and trileaflet without stenosis or regurgitation There is no additional significant valvular disease If group home now unable to give nebs (patient reports he has been getting nebs for one month at the group home) recommend he is transferred to a facility that is capable of caring for his chronic illness. (2) Cellulitis of right lower extremity: Status: Acute Assessment and plan: Elevate above the level of the heart is much as possible throughout the day. CRP 1.15 trend as appropriate. BC neg at 24h continue keflex (3) Pulmonary nodule: Status: Acute Assessment and plan: will need outpatient f/u with PCP with recommendation for referral to pulmonology (4) Leg swelling: Status: Acute Assessment and plan: elevate, compression US bilateral legs for DVT negative continue diuretics, oral furosemide 60 mg daily follow kidney function and electrolytes closely monitor i&O Light compression right greater than left edema, US negative for DVT (5) Opioid dependence: Assessment and plan: Continue Suboxone home dose Discussed with Dr. Rowe Exam Narrative Exam Narrative: General Appearance: Alert and oriented. Vital signs: Oxygen saturation 95% on room air. HEENT: Within normal limits. Respiratory: Mildly diminished breath sounds and no rhonchi or wheezing at this time (he did receive a nebulizer in the ED) Skin: Warm and dry, no rash. Legs wrapped with rebel bandages. Neurological: Normal. Psych Mental Status: mental status grossly normal Speech and Movement: speech and movement normal Mood: congruent mood Affect: normal affect Objective Last Vital Signs Temp 36.0 C L 07/04/24 07:11 Pulse 83 05/08/25 07:11 Resp 16 07/04/24 07:11 BP 123/70 07/04/24 07:11 Pulse Ox 92 07/04/24 07:11 Laboratory Results - last 24 hr 07/03/24 07/03/24 07/04/24 17:58 18:35 06:11 WBC 6.53 RBC 4.82 Hgb 14.3 Hct 42.4 MCV 88 MCH 29.7 MCHC 33.7 RDW 12.5 Plt Count 383 MPV 8.5 Immature Gran % 1.7 Neutrophils % 88.3 Lymphocytes % 7.7 Monocytes % 1.2 Eosinophils % 0.9 Basophils % 0.2 Nucleated RBC % 0.0 Absolute Neutrophils 5.77 Absolute Lymphocytes 0.50 L Absolute Monocytes 0.08 L Absolute Eosinophils 0.06 Absolute Basophils 0.01 VBG pH Cancelled 7.45 H VBG pCO2 Cancelled 54 H VBG pO2 Cancelled 22 VBG HCO3 Cancelled 38 H VBG Total CO2 Cancelled 34 H VBG O2 Saturation Cancelled 34 VBG Base Excess Cancelled 14 H Sodium 135 L Potassium 3.6 Chloride 96 L Carbon Dioxide 32.6 H Anion Gap 6.4 BUN 17 Creatinine 0.9 Est GFR (CKD-EPI 2020) 99.00 Glucose 175 H Calcium 9.5 Magnesium 2.3 Total Bilirubin 0.4 AST 21 ALT 19 Alkaline Phosphatase 79 C-Reactive Protein 1.29 H Total Protein 7.7 Albumin 3.4
--- NOTE | 2024-07-04 12:20 | DSE_ITS ---
Date of service: 07/04/24 Time of Service: 12:20 DS: Diagnosis Discharge Diagnosis (1) Chronic respiratory failure with hypoxia: Status: Chronic (2) Cellulitis of right lower extremity: Status: Acute (3) Pulmonary nodule: Status: Acute (4) Leg swelling: Status: Acute (5) Opioid dependence: Discharge Plan Disposition Patient Disposition: [facility] Condition: Improving Discharge Details Reason For Visit: Chronic hypoxia Admit Date/Time: 07/03/24 18:00 Admit Provider: Naveen Rowe Attending Provider: Naveen Rowe Primary Care Provider: Unknown,Unknown Hospital Course Hospital Course: This59 year old obese, incarcerated patient with past medical history of COPD, nicotine dependence stopping last month, presented to the ED on 07/03/2024 after initial discharge today status post treatment for patient COPD exacerbation, lower extremity cellulitis due to hypoxia recurring outpatient. Workup in the ED was negative for PE, pneumonia as per CT; respiratory viral panel was also negative. Blood work was unremarkable and the patient was admitted to the medical surgical floor for observation for acute on chronic . As per exercise oximetry testing the patient requires 2 L of oxygen on ambulation with sats dropping to 84%; at on room air the patient saturation and oxygen were maintained at 94%. The patient will be discharged to the correctional facility to continue his treatment as per previous discharge from 07/03/2024. Recommendation for outpatient provider follow-up: Outpatient provider follow-up within 7 days of discharge Pulmonary referral due to lung nodules findings Discussed with Dr. Rowe Home Meds and New Rx's Prescriptions: Continued albuterol sulfate 90 mcg/actuation aerosol powdr breath activated 2 inh inhalation Q6H prednisone 20 mg tablet 40 mg PO ONCE Qty: 10 0RF ipratropium-albuterol 0.5 mg-3 mg(2.5 mg base)/3 mL solution for nebulization 3 ml inhalation QID PRN Arnuity Ellipta 100 mcg/actuation blister with device 1 inh inhalation DAILY [id number] 27mg iron- 0.8 mg tablet 1 tab PO DAILY thiamine HCl (vitamin B1) [Vitamin B-1] 100 mg tablet 100 mg PO DAILY buprenorphine-naloxone [Suboxone] 8-2 mg film 1 film sublingual DAILY buprenorphine-naloxone [Suboxone] 2-0.5 mg film 2 film sublingual QAM Rx Instructions: place 1 strip/tab under (each) side of tongue furosemide 40 mg tablet 60 mg PO DAILY Qty: 0 0RF cephalexin 500 mg capsule 500 mg PO QID 10 Days Qty: 40 0RF Discontinued amoxicillin-pot clavulanate 875-125 mg tablet 1 tab PO BID Qty: 10 0RF Patient Comments: No longer taking discontinued or course completed ciprofloxacin HCl 250 mg tablet 250 mg PO BID Patient Comments: No longer taking discontinued or course completed Discharge Instructions Stand Alone Forms: Nursing Discharge Form Referrals: Nadine Ulrich PA [[employer]] - (COPD, lung nodule ) Unknown,Unknown [Primary Care Provider] - (Follow-up with PCP within 7 days of discharge) Activity:: Activity as Tolerated Equipment/Supplies:: 2l/min on abmulation Diet:: heart healthy Discharge Orders Discharge Orders: Discharge Order (Routine); Ordered 07/04/24 Ordered By: Mercedez Victor DS: Summary Time Spent with Patient providing and/or coordinating discharge services: Greater than 30 minutes Status at Discharge Functional status at discharge: independent ambulation Overall status at discharge: patient is not back to baseline Mental Status: mental status grossly normal Speech and Movement: speech and movement normal Mood: congruent mood Affect: normal affect Quality:SDOH Health Related Social Needs: Health related social needs inadequate housing (Z59.1) Health related social needs details Patient is incarce rated. Two officer present in patient's room. , Health related social needs details: Patient is incarcerated. Two officer present in patient's room. Exam Narrative Exam Narrative: General Appearance:No acute distress, moves all 4 ext. HEENT: facial structures are normal Respiratory: Bi-basilar diminished breath sounds and no rhonchi or wheezing at this time Cardiac: Regular, S1-S2 no murmur Skin: Warm and dry, no rash. Legs wrapped with rebel bandages. Neurological:A&O X4. No neurological deficits Psych: RASS 0, congruent mood and normal affect Psych Mental Status: mental status grossly normal Speech and Movement: speech and movement normal Mood: congruent mood Affect: normal affect DS: Data Vitals/I&O Vitals and I&O: Vital Signs Temperature 36.2 C L 07/04/24 11:01 Temperature Source Temporal Artery Scan 07/04/24 11:01 Pulse 91 H 07/04/24 11:01 Pulse Rhythm Regular 07/03/24 20:03 Pulse 87 07/03/24 18:31 Respiratory Rate 16 07/04/24 11:01 Respiratory Effort Non-Labored 07/03/24 20:03 Respiratory Pattern Normal 07/03/24 20:03 Blood Pressure 116/77 07/04/24 11:01 Blood Pressure Mean 90 07/04/24 11:01 Pulse Oximetry 91 L 07/04/24 11:01 Oxygen Delivery Method Room Air 07/04/24 11:01 Oxygen Flow Rate 0 07/04/24 11:01 Pain Level 0 07/04/24 11:01 Comment RA 07/03/24 17:45 Intake & Output 07/03/24 07/04/24 07/04/24 23:59 11:59 23:59 Intake Total 705 / 705 Balance 705 / 705 Weight 124 kg Intake: IV Oral 700 / 700 Data Completed and Pending Labs on day of discharge: Labs from last 24 hours 07/04/24 06:11: WBC 6.53, RBC 4.82, Hgb 14.3, Hct 42.4, MCV 88, MCH 29.7, MCHC 33.7, RDW 12.5, Plt Count 383, MPV 8.5, Immature Gran % 1.7, Neutrophils % 88.3, Lymphocytes % 7.7, Monocytes % 1.2, Eosinophils % 0.9, Basophils % 0.2, Nucleated RBC % 0.0, Absolute Neutrophils 5.77, Absolute Lymphocytes 0.50 L, Absolute Monocytes 0.08 L, Absolute Eosinophils 0.06, Absolute Basophils 0.01, Sodium 135 L, Potassium 3.6, Chloride 96 L, Carbon Dioxide 32.6 H, Anion Gap 6.4, BUN 17, Creatinine 0.9, Est GFR (CKD-EPI 2020) 99.00, Glucose 175 H, Calcium 9.5, Magnesium 2.3, Total Bilirubin 0.4, AST 21, ALT 19, Alkaline Phosphatase 79, C-Reactive Protein 1.29 H, Total Protein 7.7, Albumin 3.4 07/03/24 18:35: VBG pH 7.45 H, VBG pCO2 54 H, VBG pO2 22, VBG HCO3 38 H, VBG Total CO2 34 H, VBG O2 Saturation 34, VBG Base Excess 14 H 07/03/24 17:58: VBG pH Cancelled, VBG pCO2 Cancelled, VBG pO2 Cancelled, VBG HCO3 Cancelled, VBG Total CO2 Cancelled, VBG O2 Saturation Cancelled, VBG Base Excess Cancelled PFSH All Active Problems (Updated 07/04/24 @ 00:03 by VU GUAJARDO) Chronic respiratory failure with hypoxia (Chronic) Congestive heart failure (Chronic) Cellulitis of right lower extremity (Acute) Leg swelling (Acute) Pulmonary nodule (Acute) COPD exacerbation (Acute) Pneumonia (Acute) Medical History (Updated 07/04/24 @ 00:03 by VU GUAJARDO) Opioid dependence Social History Smoking/Tobacco Use Status: Former Tobacco Use Tobacco: How many years used: 45 Smoking risk assessment performed?: Yes Alcohol Intake: former Drug use: Current Sobriety Substance use type: former substance user, marijuana, crack/cocaine, heroin, amphetamines, sedatives, opiates, painkillers, methamphetamine and prescription drug Details: has been in corrections for 30 days Housing: other Do you feel safe at home: Yes Do you feel safe in your relationship?: No Time Spent with Patient Time Spent with Patient: 70-84 minutes4 Time was spent: preparing to see the patient(eg.review tests), obtaining and/or reviewing separately otained hiistory, ordering medications,tests, procedures, referring, communicating with other health physician assistant primary care, indepentently interpreting results, counseling the patient and care coordination
--- NOTE | 2024-07-04 15:27 | CMDISCH_ITS ---
Date of service: 07/04/24 Time of Service: 15:27 LACE Index Scoring Tool Questions: Length of Stay (in days): 1 Was the patient admitted via the E.D.?: Yes Comorbidities: Chronic Pulmonary Disease E.D. Visits: 3 Answers: Total Score: 9 Risk of Readmission: Low Risk Care Management Discharge Plan Reason for Hospitalization: Chronic hypoxia Discharge Plan: Néstor will discharge to the [facility] with an infirmary due to his increase medical monitoring needs related to oxygenation and wound care via facility staff. He will follow up with the facility providers and discharge plan of care as directed. Patient/Family Education Needs: Review of discharge instructions, limitations, activity, and plan of care. Discuss Ask Me Three. SDOH Health Related Social Needs: Health related social needs inadequate housing (Z59.1) Health related social needs details Patient is incarce rated. Two officer present in patient's room. , Health related social needs details: Patient is incarcerated. Two officer present in patient's room.
== END 2024-07-04 15:26 ==
LOC: ER 18:43 → MS 21:17
PROVIDERS: Nurse Practitioner Family; Admitting Provider Family Medicine; Emergency Provider Emergency Medicine; Responsible Provider Nurse Practitioner Acute Care; Visit Provider Family Medicine
DX: J96.21 Acute and chronic respiratory failure with hypoxia (principal); L03.115 Cellulitis of right lower limb; J44.1 Chronic obstructive pulmonary disease with (acute) exacerbation; R91.8 Other nonspecific abnormal finding of lung field; M79.89 Other specified soft tissue disorders; F11.20 Opioid dependence, uncomplicated; I35.8 Other nonrheumatic aortic valve disorders; I50.9 Heart failure, unspecified; Z87.891 Personal history of nicotine dependence; F19.91 Other psychoactive substance use, unspecified, in remission; Z79.899 Other long term (current) drug therapy
CPT/HCPCS: 00123; 36415; 80053; 82805; 94618; 94640; 96372; 96374; 99285; J1650; 71046; 83735; 85025; 86140; 94664; 94760; 99222; 99239; G0378; J2919; J7512; J7620

== ENCOUNTER 2024-12-31 11:57 | Emergency (ER) | payer MEDICAID, SELFPAY ==
[2024-12-31 12:01] VITALS: BP 119/76; PULSE 73; RESP 20; TEMP 36.6; O2SAT 92
[2024-12-31 13:30] VITALS: BP 119/76; PULSE 73; RESP 20; TEMP 36.6; O2SAT 92
[2024-12-31 13:56] VITALS: PULSE 100; PULSE 77; PULSE 85; RESP 16; RESP 18; O2SAT 88; O2SAT 94; O2SAT 95
--- NOTE | 2024-12-31 14:19 | W.ED.GENAD ---
Discharge Plan Discharge Details Chief Complaint: SOB Primary Care Provider: Unknown,Unknown ED Provider: Bethanie Paulson Home Meds and New Rx's Prescriptions: No Action albuterol sulfate 90 mcg/actuation aerosol powdr breath activated 2 inh inhalation Q6H prednisone 20 mg tablet 40 mg PO ONCE Qty: 10 0RF ipratropium-albuterol 0.5 mg-3 mg(2.5 mg base)/3 mL solution for nebulization 3 ml inhalation QID PRN Arnuity Ellipta 100 mcg/actuation blister with device 1 inh inhalation DAILY [id number] 27mg iron- 0.8 mg tablet 1 tab PO DAILY thiamine HCl (vitamin B1) [Vitamin B-1] 100 mg tablet 100 mg PO DAILY buprenorphine-naloxone [Suboxone] 8-2 mg film 1 film sublingual DAILY buprenorphine-naloxone [Suboxone] 2-0.5 mg film 2 film sublingual QAM Rx Instructions: place 1 strip/tab under (each) side of tongue furosemide 40 mg tablet 60 mg PO DAILY Qty: 0 0RF HPI General Date/Time Provider Initiated Documentation: 12/31/24 12:38. HPI Narrative: This 59-year-old male with history of reported lung cancer, COPD, CHF presents with report of oxygen need. He reportedly was started on oxygen when he was incarcerated, 2 L and was discharged 3 days ago went to oxygen tanks. He states he has been trying to establish with a primary care physician so that he can acquire more oxygen for home. He denies any new chest pain, shortness of breath, dizziness. He states he has an appointment at [facility] to initiate oncology process. He does not currently have a primary care physician. He denies any new medical complaints at this time. Related Data Home Medications Medication Instructions Recorded Confirmed albuterol sulfate 90 mcg/actuation 2 inh inhalation Q6H 06/04/24 07/03/24 breath activated powder inhaler prednisone 20 mg tablet 40 mg (2 x 20 mg) PO ONCE #10 tabs 06/04/24 07/03/24 buprenorphine 2 mg-naloxone 0.5 mg 2 film sublingual QAM 06/29/24 07/03/24 sublingual film (Suboxone) buprenorphine 8 mg-naloxone 2 mg 1 film sublingual DAILY 06/29/24 07/03/24 sublingual film (Suboxone) fluticasone furoate 100 1 inh inhalation DAILY 06/29/24 07/03/24 mcg/actuation blister powder for inhalation (Arnuity Ellipta) ipratropium 0.5 mg-albuterol 3 mg 3 ml inhalation QID PRN 06/29/24 07/03/24 (2.5 mg base)/3 mL nebulization soln vits 137-ferrous fumarate 1 tab PO DAILY 06/29/24 07/03/24 27 mg iron-folic acid 0.8 mg tablet thiamine HCl (vitamin B1) 100 mg 100 mg PO DAILY 06/29/24 07/03/24 tablet (Vitamin B-1) furosemide 40 mg tablet 60 mg (1.5 x 40 mg) PO DAILY #0 07/03/24 07/03/24 tabs Previous Rx's Medication Instructions Recorded prednisone 20 mg tablet 40 mg (2 x 20 mg) PO ONCE #10 tabs 06/04/24 furosemide 40 mg tablet 60 mg (1.5 x 40 mg) PO DAILY #0 07/03/24 tabs Allergies Allergy/AdvReac Type Severity Reaction Status Date / Time cocoa Allergy Severe Anaphylaxis Verified 07/03/24 17:35 codeine Allergy Intermediate Nausea Verified 07/03/24 17:35 Sulfa (Sulfonamide AdvReac Intermediate Nausea Verified 07/03/24 17:35 Antibiotics) General Stated Complaint: SOB CARLOS: 4 Exam Narrative Exam Narrative: Alert and oriented 59-year-old male in no acute distress, specifically no respiratory distress, lungs slightly diminished, speaking in complete sentences cardiac rate rhythm regular ambulatory with steady gait no peripheral edema Course Vital Signs Vital signs: Vital Signs Temperature 36.6 C 12/31/24 12:01 Pulse 73 12/31/24 12:01 Respiratory Rate 20 12/31/24 12:01 Blood Pressure 119/76 12/31/24 12:01 Pulse Oximetry 92 12/31/24 12:01 Temperature 36.6 C 12/31/24 12:01 Temperature Source Oral 12/31/24 12:01 Pulse 73 12/31/24 12:01 Respiratory Rate 20 12/31/24 12:01 Blood Pressure 119/76 12/31/24 12:01 Blood Pressure Position Sitting 12/31/24 12:01 Pulse Oximetry 92 12/31/24 12:01 Oxygen Delivery Method Room Air 12/31/24 12:01 Oxygen Flow Rate 0 12/31/24 12:01 Medical Decision Making Assessment and plan: I spent approximately 10 minutes reviewing patient's paperwork [facility] with reportedly 2 L oxygen requirement. I called [facility] to see if oxygen can be ordered in the outpatient setting and spoke with respiratory therapy. Respiratory therapy performed assessment on the patient to qualify him for oxygen and at this time they do not feel the patient requires oxygen based on their assessment he did not desaturate below 88%. Unfortunately, as respiratory therapy does not feel like patient qualifies and on room air in the emergency department he maintains around 95 to 96% at rest he does not currently qualify for oxygen. He will be placed on the list to establish care with a primary care physician so that he may have outpatient follow-up and reassessment from a respiratory standpoint. As he does not have any current respiratory complaints I do not feel like he needs diagnostic workup in the emergency department. Discharged ambulatory with steady gait with stable vitals, speaking complete sentences no significant respiratory distress Quality:SDOH Health Related Social Needs: Health related social needs inadequate housing Health related social needs details Patient is incarcerated. Two officer present in patient's room. PFSH All Active Problems (Updated 07/05/24 @ 00:02 by VU GUAJARDO) Chronic respiratory failure with hypoxia (Chronic) Congestive heart failure (Chronic) Cellulitis of right lower extremity (Acute) Pulmonary nodule (Acute) COPD exacerbation (Acute) Pneumonia (Acute) Medical History (Updated 07/05/24 @ 00:02 by VU GUAJARDO) Opioid dependence Leg swelling Social History Smoking/Tobacco Use Status: Former Tobacco Use Tobacco: How many years used: 45 Smoking risk assessment performed?: Yes Alcohol Intake: former Drug use: Current Sobriety Substance use type: former substance user, marijuana, crack/cocaine, heroin, amphetamines, sedatives, opiates, painkillers, methamphetamine and prescription drug Details: has been in corrections for 30 days patient has not used any substance for the past 8 months Housing: other Do you feel safe at home: Yes Do you feel safe in your relationship?: No
== END 2024-12-31 14:45 ==
LOC: ER 13:59
PROVIDERS: Emergency Provider Physician Assistant
DX: R06.02 Shortness of breath (principal); Z59.10 Inadequate housing, unspecified
CPT/HCPCS: 99283; 99282; 94618